=== PATIENT | male | born 1945 | race Caucasian/White ===

== ENCOUNTER 2023-01-31 08:40 | Outpatient (CLI) | payer MEDICARE, SELFPAY | END 2023-01-31 08:41 | disposition home or self-care (01) | LOC: NFLDREF 02-01 10:44 | PROVIDERS: PCP Family Medicine; Referring Provider Family Medicine; Visit Provider Family Medicine | DX: Z00.00 Encounter for general adult medical examination without abnormal findings (principal); E78.5 Hyperlipidemia, unspecified; R73.01 Impaired fasting glucose; I10 Essential (primary) hypertension; Z12.5 Encounter for screening for malignant neoplasm of prostate | CPT/HCPCS: 80053; 80061; 84153 ==

== ENCOUNTER 2024-01-26 10:16 | Outpatient (CLI) | payer MEDICARE, SELFPAY ==
--- OUTSIDE RECORDS SUMMARY | 2024-02-16 11:43 | XMS_ITS | Encounter Summary ---
Author Name [facility] of [facility] Organization [facility] Address [address] [place] [address] Support Name Relationship Address Phone FULL, ESTHER Next of Kin [address] [place] [phone] ESTHER HAYES Emergency Contact [address] [place] [id number] Insurance Providers: All historical and current Section Date Range: From patient's date of to the date document was created. This section includes the names of all active insurance providers for the patient. Insurance Provider Type of Coverage Plan Name Start of Policy Coverage End of Policy Coverage Group Number Member ID Insurance Provider's Telephone Number Policy Oshea's Name Patient's Relationship to Policy Oshea [facility] (WNR) MEDICARE ADVANTAGE MCR (WNR) Oct 03, 2020 [id number] [phone] FULLGUERRERO AEL PATIENT [facility] (WNR) MEDICARE ADVANTAGE MCR (WNR) Oct 03, 2020 [id number] [phone] FULL,[facility] AEL PATIENT [facility] (WNR) MEDICARE ADVANTAGE MEDIC ARE ADVROHITH WEEMS C Oct 03, 2016 [id number] [phone] FULL,[facility] AEL PATIENT Selected Encounter This section includes the information on record at [place] for the Encounter. Date/Time Encounter Type Encounter Description Reason Provider Source Jan 31, 2024 08:30 AM OFFICE O/P EST MOD 30 MIN PRIMARY CARE/MEDICINE ICD-10-CM I10 Essential (primary) hypertension STENSETKathya,CHRI STOPHER IHE Encounter Template Text not used by [place] Assessments - Encounter Diagnoses This section includes the primary and secondary diagnoses documented for the Encounter. Date/Time Primary/Secondary Diagnosis Diagnosis Name Provider Source Jan 31, 2024 09:25 AM PRIMARY Essential (primary) [facility] Jan 31, 2024 09:25 AM SECONDARY Benign prostatic hyperplasia without lower urinry tract symp [facility] Jan 31, 2024 09:25 AM SECONDARY Hyperlipidemia, unspecified [facility],[facility] Jan 31, 2024 09:25 AM SECONDARY Insomnia, unspecified STENSET,[facility] Jan 31, 2024 09:25 AM SECONDARY Obesity, unspecified [facility]AT,[facility] Jan 31, 2024 09:25 AM SECONDARY Occlusion and stenosis of unspecified carotid artery [facility] Jan 31, 2024 09:25 AM SECONDARY Personal history of nicotine [facility] Plan of Treatment: Future Appointments (+ 6 months) and Future Tests (+/- 45 days) The Plan of Treatment section includes future care activities for the patient [facility] This section includes future appointments and future orders which are active, pending or scheduled. Future Appointments This section includes appointments that were scheduled to occur 6 months from the date of the Encounter, up to a maximum of 20 appointments. The data comes from all [facility]. Appointment Date/Time Appointment Type Appointme nt Facility Name Apr 10, 2024 09:00 AM AMBULATORY - [facility] Active, Pending, and Scheduled Orders This section includes a listing of several types of active, pending, and scheduled orders, including clinic medications orders, diagnostic test orders, procedure orders and consult orders; where the start date of the order is 45 days before the date of the Encounter or 45 days after the date of theEncounter. The data comes from all [facility]. Test Date/Time Test Type Test Details Facility Name Jan 31, 2024 11:45 AM Consult Order [facility] Director's Choice [facility] Lab Results: +/- 30 days of the encounter This section includes the Chemistry and Hematology Lab Results on record with [place] for the patient. Radiology Reports and Pathology Reports are provided separately, in subsequent sections. Lab Results This section contains the Chemistry/Hematology Results that were resulted 30 days before or 30 daysafter the date of the Encounter. Date/Time Source Result Type Result - Unit Interpretation Reference Range Comment Jan 31, 2024 09:48 AM [facility] DRUG SCREEN PANEL,URINE Specimen Type: URINE No comment entered. Ordering Provider: SALEEM QUEVEDO Report Released Date/Time: Jan 31, 2024 09:01 AM Reporting Lab: [facility] [address] [facility] [id number] Performing Lab: [facility] [address] [facility] [id number] BARBITURATES Negative Negative AMPHETAMINES Negative Negative COCAINE Negative Negative BENZODIAZEPINES Negative Negative CANNABINOIDS Negative Negative METHADONE Negative Negative OPIATES Negative Negative PHENCYCLIDINE Negative Negative ETHANOL,URINE Negative Negative DRUG SCREEN CREAT 159.0 >20.0 OXYCODONE Negative Negative BUPRENORPHINE Negative Negative TRAMADOL Negative Negative FENTANYL Negative Negative Vital Signs: All taken on the encounter date This section contains inpatient and outpatient Vital Signs collected on the date of the Encounter. Date/Time Temperature Pulse Blood Pressure Respiratory Rate SP02 Pain Height Weight Body Mass Index Source Jan 31, 2024 08:36 AM 112/74 [facility] Jan 31, 2024 08:30 AM 61 144/79 14 96 1 70 210 30 [facility] Social History: Smoking Status (Most current) and Tobacco Use (All prior to encounter date) This section includes the most current, and the historical, smoking and tobacco- related health factors from the [place] facility where the Encounter took place. Current Smoking Status This section includes the most current smoking, or tobacco-related health factor, from the [place] facility where the Encounter took place. Date/Time Current Smoking Status Comment Deanna brooke Jan 31, 2024 08:30 AM VA-TOBACCO FORMER USER [facility] Tobacco Use History This section includes a history of the smoking, or tobacco-related health factors, that were collected on or before the date of the Encounter. The data comes from the [place] facility where the Encounter took place. Date/Time Smoking Status/Tobacco Use Comment F acility Jan 31, 2024 08:30 AM VA-TOBACCO QUIT 15 YRS OR MORE [facility] February 08, 2023 10:00 AM VA-TOBACCO FORMER USER [facility] February 08, 2023 10:00 AM VA-TOBACCO QUIT 15 YRS OR MORE [facility] February 08, 2022 03:00 PM VA-TOBACCO FORMER USER [facility] February 08, 2022 03:00 PM VA-TOBACCO QUIT 15 YRS OR MORE [facility] February 16, 2021 01:30 PM VA-TOBACCO FORMER USER [facility] February 16, 2021 01:30 PM VA-TOBACCO QUIT 15 YRS OR MORE [facility] Apr 11, 2020 03:22 PM VA-TOBACCO FORMER USER [facility] Apr 11, 2020 03:22 PM VA-TOBACCO QUIT 15 YRS OR MORE [facility] Oct 12, 2018 12:54 PM VA-TOBACCO FORMER USER [facility] Oct 12, 2018 12:54 PM VA-TOBACCO QUIT 15 YRS OR MORE [facility] February 02, 2018 09:28 AM FORMER TOBACCO USER 7Y OR GREATE R [facility] February 02, 2016 10:22 AM FORMER TOBACCO USER 7Y OR GREATE R [facility] Jan 13, 2015 08:21 AM FORMER TOBACCO USER 7Y OR GREATE R [facility] Jan 21, 2014 08:15 AM FORMER TOBACCO USER 7Y OR GREATE R [facility] Dec 21, 2010 10:20 AM FORMER TOBACCO USER 7Y OR GREATE R [facility] Encounter Notes: All associated encounter notes This section contains the clinical notes associated to the Encounter. Date/Time Encounter Note(s) Provider Source Jan 31, 2024 09:18 AM INTERNAL MEDICINE NOTE: LOCAL TITLE: MEDICINE CLINIC NOTE STANDARD TITLE: INTERNAL MEDICINE NOTE DATE OF NOTE: JAN 31, 2024@09:18 ENTRY DATE: JAN 31, 2024@09:18:39 AUTHOR: ERICA QUEVEDO COSIGNER: URGENCY: STATUS: COMPLETED Nurse's Notes Reviewed. Chief Complaint: Annual f/u HPI: 78 y/o FIG here for annual follow-up. Principally follows with private doctor in [place]. History of right carotid endarterectomy, private surveillance. Takes statin and aspirin daily, no TIA symptoms or amaurosis fugax. does not smoke cigarettes or use tobacco products. Occasional light alcohol, not exceeding recommended limits. No angina, depression, falls, or complaints of other musculoskeletal pain. Request for screening ultrasound for AAA, significant tobacco use history . Comprehensive review of systems was otherwise negative. Past medical history/Active Problems: Active Problems: Active problems - Computerized Problem List is the source for the followin. Benign essential hypertension 2. Hyperlipidemia 3. Carotid artery stenosis - carotid endarterectomy right - stable, moderate plaque left carotid bulb in 2019 4. Insomnia - chronic low dose clonazepam 5. dual care - 2019: Dr. Liriano at [facility] 6. Simple renal cyst - Bilateral renal cysts, stable. 7.7cm on right 7. Elevated total bilirubin 8. Lumbar spondylosis - 2018 MRI: L3/4 severe central stenosis, no neurologic findings - receiving spinal ablation injections 9. Hearing loss - A hearing aides - Tinnitus well managed 10. Osteoarthritis - Right knee replaced - Right hip replacement - Feet: bunions, early claw foot deformity 11. Social and personal history finding - Esther, travels often, volunteers abroad - 2 children, 3 grandchildren, youngest child January 2019. 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 Benign prostatic hyperplasia 13. Benign polyp of colon - 2012 polyp, 2018 none, repeat 06/2024. Note 03/12/2021 and result 03/23/2021 14. Obesity 15. Ex-smoker Tobacco/ETOH Use: No tobacco use Alcohol Use: Does drink though not concerning for abuse. Review of Systems: Feels well, no weight loss, good appetite. No Chest Pain. No Shortness of breath. No orthopnea, PND, or peripheral edema. No abdominal pain, N/V, or change in bowel habits. No diarrhea or constipation. No Bleeding. No urinary hesitancy or frequency. Physical Exam: VS: Temp: 96.3 F [35.7 C] (02/08/2023 09:47) BP: 112/74 (01/31/2024 08:36) Pulse:61 (01/31/2024 08:30) Resp: 14 (01/31/2024 08:30) Weight: 210 lb [95.25 kg] (01/31/2024 08:30) Pain: 1 (01/31/2024 08:30) O2 Sat: 96% (01/31/2024 08:30) BMI: 30.2 General NAD WDWN Ambulatory Overweight Conversive, pleasant Right endart scar Cardiac: RRR with normal S1 and S2; without murmur, gallop, rub. Chest/Lungs: Bilaterally clear, Clear to auscultation Extremities: No edema. Assessment/Plan: 1. Benign essential hypertension: Atenolol- encouraged to optimize lifestyle - BPs at goal/med mgt optimized 2. Hyperlipidemia - on mod intensity statin 3. Carotid artery stenosis: Discussed augmenting statin therapy with private PCP for goal less than 70 LDL - carotid endarterectomy right - stable, moderate plaque left carotid bulb in 2019 - continue to [id number] RF 4. Insomnia: Suggested he work at tapering the clonazepam in light of his advancing age - chronic low dose clonazepam -UDS today. f/u w/ pt -PDMP shows no discrepancies 5. Benign prostatic hyperplasia - on flomax, encouraged to schedule daily use - sx satisfactorily ctrlled - continue to optimize lifestyle interventions as well - routine f/u 6. Hearing loss: Has audiology follow-up next 7. Overweight: Weight loss Plan: Return to Clinic in 1 year with no labs, FIG Labs today Call as needed with problems Medications reconciled Patient Education of Treatment Plan: Patient indicates readiness to learn, verbalizes understanding, agreement and satisfaction with the treatment plan. Denies further questions. More than 50% of this 30 min appt was spent counseling/coordinating care for the medical problems outlined above. Medication Reconciliation: Education Evaluations *Was medication education provided for NEW medications or CHANGES to medications? (including medication name, dose, route, reason for use, and potential side effects). No new medications or medication changes during this encounter. TERATOGENIC MED & CONTRACEPTION REVIEW (Optional)... ======= MEDICATION RECONCILIATION ======= List Given: An updated medication list was provided to the patient/caregiver. Review Done: The medication list shown below was verified for accuracy and it includes all pending medications/active medications/all medications or discontinued within the last 90 days/all remote medications and non-VA medications. If a given category (i.e. remote meds) is not shown, that means that a patient doesn't have a medication(s) in that category. Allergies listed below were also reviewed/updated for accuracy. Allergies/ADR from [employer] may not display in CPRS. Use JLV MRT5 - Allergies/ADRs FACILITY ALLERGY/ADR -------- No Remote Allergy/ADR Data available for this patient [facility] No Known Allergies Active and Recently Outpatient Medications (including Supplies): Issue Date Status Last Fill Active Outpatient Medications Refills Expiration 1) ATENOLOL 25MG TAB Qty: 90 for 90 days ACTIVE Issu:02-08-23 Sig: TAKE ONE TABLET BY MOUTH EVERY Refills: 0 Last:12-16-23 DAY Expr:02-09-24 2) CLONAZEPAM 1MG TAB Qty: 30 for 30 days ACTIVE Issu:12-16-23 Sig: TAKE ONE TABLET BY MOUTH AT Refills: 1 Last:12-16-23 BEDTIME FOR INSOMNIA Expr:06-17-24 3) SIMVASTATIN 10MG TAB Qty: 90 for 90 ACTIVE Issu:12-16-23 days Sig: TAKE ONE TABLET BY MOUTH AT Refills: 3 Last:01-03-24 BEDTIME FOR CHOLESTEROL Expr:12-16-24 4) TAMSULOSIN HCL 0.4MG CAP Qty: 90 for 90 ACTIVE Issu:02-08-23 days Sig: TAKE ONE CAPSULE BY MOUTH Refills: 2 Last:09-23-23 AT BEDTIME FOR BENIGN PROSTATIC Expr:02-09-24 HYPERTROPHY (BPH) Issue Date Status Last Fill Pending Outpatient Medications Refills Expiration 1) ATENOLOL 25MG TAB Qty: 90 Sig: TAKE PENDING ONE TABLET BY MOUTH EVERY DAY Refills: 0 2) CLONAZEPAM 1MG TAB Qty: 30 Sig: TAKE PENDING ONE TABLET BY MOUTH AT BEDTIME FOR Refills: 0 INSOMNIA 3) SIMVASTATIN 10MG TAB Qty: 90 Sig: TAKE PENDING ONE TABLET BY MOUTH AT BEDTIME FOR Refills: 0 CHOLESTEROL 4) TAMSULOSIN HCL 0.4MG CAP Qty: 90 Sig: PENDING TAKE ONE CAPSULE BY MOUTH AT BEDTIME Refills: 0 FOR BENIGN PROSTATIC HYPERTROPHY (BPH) Issue Date Status Last Fill Inactive Outpatient Medications Refills Expiration 1) CLONAZEPAM 1MG TAB Qty: 30 for 30 days DISCONTINUED Issu:08-29-23 Sig: TAKE ONE TABLET BY MOUTH AT Refills: 0 Last:10-25-23 BEDTIME FOR INSOMNIA FOR INSOMNIA Expr:02-29-24 2) SIMVASTATIN 10MG TAB Qty: 90 for 90 DISCONTINUED Issu:01-11-23 days Sig: TAKE ONE TABLET BY MOUTH AT Refills: 0 Last:10-10-23 BEDTIME FOR CHOLESTEROL Expr:01-12-24 3) SIMVASTATIN 20MG TAB Qty: 45 for 90 DISCONTINUED Issu:01-06-23 days Sig: TAKE ONE-HALF TABLET BY (EDIT) Last:01-11-23 MOUTH AT BEDTIME FOR CHOLESTEROL Refills: 3 Expr:01-07-24 Start Date Active Non-VA Medications Refills Expiration 1) Non-VA ASPIRIN TAB SiMG MOUTH ACTIVE EVERY DAY 12 Total Medications Follow Up Colonoscopy: Colonoscopy is due based on information available to this reminder. Patient has arranged or is choosing to arrange a Colonoscopy independent of and w/out assistance from this [place]. scheduled through private /megan/ Berto Quevedo APRN, CATALYST OPERATOR GASOLINE Family Nurse Practitioner Signed: 01/31/2024 09:25 ERICA QUEVEDO [facility] Jan 31, 2024 08:32 AM INTERNAL MEDICINE OUTPATIENT NOTE: LOCAL TITLE: MEDICINE CLINIC NURSING NOTE STANDARD TITLE: INTERNAL MEDICINE OUTPATIENT NOTE DATE OF NOTE: JAN 31, 2024@08:32 ENTRY DATE: JAN 31, 2024@08:32:32 AUTHOR: CORY MACHUCA COSIGNER: URGENCY: STATUS: COMPLETED MEDICINE CLINIC NURSING NOTE Has ADDENDA TYPE OF VISIT: Appointment Check In Type of appointment: In-person appointment REASON FOR VISIT: Check up. ALLERGIES: Patient has answered NKA VITAL SIGNS: Blood Pressure: 144/79 (01/31/2024 08:30) Pulse: 61 (01/31/2024 08:30) Respiration: 14 (01/31/2024 08:30) Temperature: 96.3 F [35.7 C] (02/08/2023 09:47) Weight: 210 lb [95.25 kg] (01/31/2024 08:30) Height: 70 in [177.8 cm] (01/31/2024 08:30) BMI: 30.2 O2 Sat: 96% (01/31/2024 08:30) Pain: 1 (01/31/2024 08:30) PAIN SCREEN: Patient is not having significant pain that they wish to discuss with their provider today. MEDICATION Over the Counter/Herbal Medications: The patient states that they take some outside medications and/or herbals. Suicide Screen: C-SSRS Screening [place] Suicide Severity Rating Scale (C-SSRS) screener 1. Over the past month, have you wished you were or wished you could go to sleep and not wake up? No 2. Over the past month, have you had any actual thoughts of killing yourself? No 3. Over the past month, have you been thinking about how you might do this? Response not required due to responses to other questions. 4. Over the past month, have you had these thoughts and had some intention of acting on them? Response not required due to responses to other questions. 5. Over the past month, have you started to work out or worked out the details of how to kill yourself? Response not required due to responses to other questions. 6. If yes, at any time in the past month did you intend to carry out this plan? Response not required due to responses to other questions. 7. In your lifetime, have you ever done anything, started to do anything, or prepared to do anything to end your life (for example, collected pills, obtained a gun, gave away valuables, went to the roof but didn't jump)? No 8. If YES, was this within the past 3 months? Response not required due to responses to other questions. Alcohol Use Screen (AUDIT-C): Alcohol Screen: SCREEN FOR ALCOHOL (AUDIT-C) An alcohol screening test (AUDIT-C) was negative (score=3). 1. How often did you have a drink containing alcohol in the past year? Consider a drink to be a 12 ounce can or bottle of regular beer, 8 ounces of malt liquor, a 5 ounce glass of table wine, or a 1.5 ounce shot of liquor (like scotch, gin, or vodka). Two to three times per week 2. How many drinks containing alcohol did you have on a typical day when you were drinking in the past year? One or two drinks 3. How often did you have six or more drinks on one occasion in the past year? Never Depression Screening: Perform PHQ-2 A PHQ-2 screen was performed. The score was 0 which is a negative screen for depression. Over the past two weeks, how often have you been bothered by the following problems? 1. Little interest or pleasure in doing things Not at all 2. Feeling down, depressed, or hopeless Not at all Nursing Annual Screening: Fall History Screen During the past 12 months, have you had any falls? Patient does not report any falls in the past 12 months. MEDICATIONS: Patient is on one of the following medication classes: Antihypertensives, Antidepressants, Antipsychotics, Diuretics, or Controlled substance medication used for pain. Script Talk Screen Are you able to read your prescription bottles with your glasses, magnifiers or other aids? Yes or patient not taking any prescriptions. Skin Screen Patient reports any current pressure ulcers, a history of pressure ulcers, or a wound from a medical interpreter or Patient is bed-confined or a wheelchair-user or Patient requires assistance to transfer/change position No, Skin Screen is Negative Home Abuse/Violence Screen Is your home free of abuse and violence? Yes MOVE! Program Screen Body Mass Index (BMI)= 30.2 [place]: No data available [place] Hgb A1C: No data available [place] Hgb A1C: No data available Point of Care Hgb A1C: POC HGB A1C____ Outpatient Nutrition Screen Body Mass Index (BMI)= 30.2 [place]: No data available [place] Hgb A1C: No data available [place] Hgb A1C: No data available Point of Care Hgb A1C: POC HGB A1C____ Is patient's BMI less than 18.5? No Does patient have swallowing, coughing, or chewing problems affecting oral intake? No Has patient experienced unplanned weight loss or gain greater than 10 pounds over the last 2 months? No Is patient's Hgb A1C (Glycosylated Hemoglobin) greater than 9.5? Information not available Is patient receiving Total Parenteral Nutrition (TPN) or Tube Feedings? No Patient Health Education Screen BARRIERS/SPECIAL NEEDS: No barriers identified PREFERRED STYLE OF LEARNING: No preference stated Client Assistive Service (JUAN ALBERTO) Screen Does the patient require assistance with outpatient visit? No Tobacco Use Screening: The patient is a former tobacco user. The patient quit fifteen or more years ago. Homelessness/Food Insecurity Screen: In the past 2 months, have you been living in stable housing that you own, rent, or stay in as part of a household? Yes - Living in stable housing. Are you worried or concerned that in the next 2 months you may NOT have stable housing that you own, rent, or stay in as part of a household? No - Not worried about housing near future [facility] [place] reports the following: Within the past 12 months, you worried whether your food would run out before you got money to buy more. Never true Within the past 12 months, the food you bought just didn't last and you didn't have money to get more. Never true Food Assistance Programs [facility] Food Assistance [facility] [place] /megan/ CORY MACHUCA LPN STAFF INSPECTOR [employer] Signed: 01/31/2024 08:35 01/31/2024 ADDENDUM STATUS: COMPLETED Procedure: Urine Drug Screen Instructed in collection of urine drug screen. Printed instructions provided and participant(s) is able to repeat these instructions accurately. Review recent medication history: Has patient used any controlled substance in the past 3 days: Yes, Patient reports using the following, Medication name and dose: clonazepam 1mg Date and time it was taken: 01/30/24 in pm Has Patient used any Non-VA or [id number] medications in the past 3 days: Yes, Patient reports using the following, Medication name and dose: aspirin Date and time it was taken: 01/30/24 in pm Has patient used any illegal substance in the past 3 days: No Urine Drug Screen (UDS): sent to [facility] /megan/ EMANUEL FORTE LPN Signed: 01/31/2024 09:32 CORY MACHUCA [facility]
--- OUTSIDE RECORDS SUMMARY | 2024-02-16 11:43 | XMS_ITS | Continuity of Care Document ---
Author Name [facility] Organization [facility] Care Team Providers Care Staff Air Defense Officer Name Role Phone [facility] Unavailable Unavailable Problems Combined list of problems from Department of Defense and Veterans Affairs facilities. It does not include entries that were removed or entered in error. Problem Status Onset Date Problem Type Date of Resolution Comments Source Benign essential hypertension Active Condition [facility] Benign polyp of colon Active Condition Mar 23, 2021 Entered By: VERNA MOSS Comment: 2012 polyp, 2018 none, repeat 06/2024. Note 03/12/2021 and result 03/23/2021 [facility] Benign prostatic hyperplasia Active Condition February 12, 2019 Entered By: VERNA MOSS Comment: 01/2019: residual urine 52ml [facility] Carotid artery stenosis Active Condition February 13, 2018 Entered By: VERNA MOSS Comment: carotid endarterectomy rightMa2022 Entered By: MICHELLE MILLS Comment: stable, moderate plaque left carotid bulb in 2018 [facility] dual care Active Condition February 12 19 Entered By: VERNA MOSS Comment: 2019: Dr. Liriano at [facility] Elevated total bilirubin Active Condition [facility] Ex-smoker Active Condition [facility] Hearing loss Active Condition February 13, 2018 Entered By: VERNA MOSS Comment: [facility] hearing aidesMay 2018 Entered By: VERNA MOSS Comment: Tinnitus well managed [facility] Hyperlipidemia Active Condition [facility] Insomnia Active Condition February 13 18 Entered By: VERNA MOSS Comment: chronic low dose clonazepam [facility] Lumbar spondylosis Active Condition February 12, 2019 Entered By: VERNA MOSS Comment: 2019 MRI: L3/4 severe central stenosis, no neurologic findingsMay 2022 Entered By: MICHELLE MILLS Comment: receiving spinal ablation injections [facility] Obesity Active Condition [facility] Osteoarthritis Active Condition January 312020 Entered By: VERNA MOSS Comment: Right knee replacedMa2020 Entered By: VERNA MOSS Comment: Right hip replacementFebruary 16, 2021 Entered By: VERAN MOSS Comment: Feet: bunions, early claw foot deformity [facility] Simple renal cyst Active Condition 2018 Entered By: VERNA MOSS Comment: Bilateral renal cysts, stable. 7.7cm on right [facility] Social and personal history finding Active Condition Apr 14, 2020 Entered By: VERNA MOSS Comment: Esther, travels often, volunteers abroadJ 2019 Entered By: VERNA MOSS Comment: 2 children, 3 grandchildren, youngest child January 2019. 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 [facility] History of right hip replacement Inactive Condition 07/28/2022 Apr 14, 2020 Entered By: VERNA MOSS Comment: Nov 2019. Had fracture during surgery but recovered well [facility] History of total knee arthroplasty Inactive Condition 07/28/2022 February 12 Entered By: VERNA MOSS Comment: Right knee, good results January 2019 [facility] Diagnosis: ICD-10-CM H90.A21 Snsrnrl hear loss, uni, r ear, with rstrcd hear cntra side Active Diagnosis [facility] Diagnosis: ICD-10-CM I10 Essential (primary) hypertension Active Diagnosis [facility] Diagnosis: ICD-10-CM G47.00 Insomnia, unspecified Active Diagnosis [facility] Diagnosis: ICD-10-CM Z01.118 Encntr for exam of ears and hearing w oth abnormal findings Active Diagnosis [facility] Medications Combined list of outpatient medications from Department of Defense and Veterans Affairs facilities.Medications provided include 1) outpatient medications from the last 15 months, and 2) patient-reported medications. Medication Details Route Status Patient Instructions Prescription Expires Prescription Number Last Dispense Date Ordering Provider Order Date Order Qty Source ASPIRIN TAB TAKE 81MG BY MOUTH EVERY DAY ORALLY ACTIVE VERNA MOSS 2021 [facility] ATENOLOL 25MG TAB TAKE ONE TABLET BY MOUTH EVERY DAY ORALLY SUSPEND ED 01/31/2025 [id number] TRISHA THOMPSON 2023 90 [facility] ATENOLOL 25MG TAB TAKE ONE TABLET BY MOUTH EVERY DAY ORALLY DISCONT INUED 02/09/2024 [id number] SALVADOR MILLS 2022 90 [facility] ATENOLOL 25MG TAB TAKE ONE TABLET BY MOUTH EVERY DAY ORALLY DISCONT INUED 01/16/2023 [id number] VERNA MOSS 2021 90 [facility] CLONAZEPAM 1MG TAB TAKE ONE TABLET BY MOUTH AT BEDTIME FOR INSOMNIA ORALLY ACTIVE 08/02/2024 [id number] TRISHA THOMPSON 2023 30 [facility] CLONAZEPAM 1MG TAB TAKE ONE TABLET BY MOUTH AT BEDTIME FOR INSOMNIA ORALLY DISCONT INUED 06/17/2024 [id number] ERICA RUTH 2023 30 [facility] CLONAZEPAM 1MG TAB TAKE ONE TABLET BY MOUTH AT BEDTIME FOR INSOMNIA FOR INSOMNIA ORALLY DISCONT INUED 02/29/2024 [id number] DENICE MILLSV IA Derrek 2022 30 [facility] CLONAZEPAM 1MG TAB TAKE ONE TABLET BY MOUTH AT BEDTIME FOR INSOMNIA ORALLY DISCONT INUED 01/28/2023 [id number] 3 SALVADOR MILLS 2021 30 [facility] CLONAZEPAM 1MG TAB TAKE ONE TABLET BY MOUTH AT BEDTIME FOR INSOMNIA ORALLY 08/11/2023 [id number] SALVADOR MILLS 2022 30 [facility] SIMVASTATIN 10MG TAB TAKE ONE TABLET BY MOUTH AT BEDTIME FOR CHOLESTE ROL ORALLY SUSPEND ED 01/31/2025 [id number] TRISHA THOMPSON 2023 90 [facility] SIMVASTATIN 10MG TAB TAKE ONE TABLET BY MOUTH AT BEDTIME FOR CHOLESTE ROL ORALLY DISCONT INUED 12/16/2024 [id number] ERICA RUTH 2023 90 [facility] SIMVASTATIN 10MG TAB TAKE ONE TABLET BY MOUTH AT BEDTIME FOR CHOLESTE ROL ORALLY DISCONT INUED 01/12/2024 [id number] SALVADOR MILLS 2022 90 [facility] SIMVASTATIN 20MG TAB TAKE ONE-HALF TABLET BY MOUTH AT BEDTIME FOR CHOLESTE ROL ORALLY DISCONT INUED (EDIT) 01/07/2024 [id number] 3 VERNA MOSS 2022 45 [facility] TAMSULOSIN HCL 0.4MG CAP TAKE ONE CAPSULE BY MOUTH AT BEDTIME FOR BENIGN PROSTATI C HYPERTRO PHY (BPH) ORALLY ACTIVE 01/31/2025 [id number] TRISHA THOMPSON 2023 90 [facility] TAMSULOSIN HCL 0.4MG CAP TAKE ONE CAPSULE BY MOUTH AT BEDTIME FOR BENIGN PROSTATI C HYPERTRO PHY (BPH) ORALLY DISCONT INUED 02/09/2024 [id number] SALVADOR MILLS 2022 90 [facility] Immunizations Combined list of available immunizations from the Department of Defense and Veterans Affairs facilities. Immunization Series Date Given Administered By Site Reaction Lot Number CVX Code Drug Frontload Driver Status Comments Source COVID-19 (MODERNA), MRNA, LNP-S, PF, 50 MCG/0.5 ML (AGES 12+ YEARS) 2022 312 complet ed [facility] INFLUENZA, HIGH-DOSE, QUADRIVALENT 2022 197 complet ed [facility] COVID-19 (MODERNA), MRNA, LNP-S, BIVALENT, PF, 50 MCG/0.5 ML OR 25MCG/0.25 ML DOSE 2022 229 complet ed [facility] INFLUENZA, UNSPECIFIED FORMULATION 2021 88 complet ed [facility] INFLUENZA, HIGH-DOSE, QUADRIVALENT 2021 197 complet ed [facility] COVID-19 (MODERNA), MRNA, LNP-S, BIVALENT, PF, 50 MCG/0.5 ML OR 25MCG/0.25 ML DOSE 2021 229 complet ed [facility] PNEUMOCOCCAL POLYSACCHARID E PPV23 2021 33 complet ed [facility] TDAP 2021 115 complet ed [facility] COVID-19 (MODERNA), MRNA, LNP-S, PF, 100 MCG/0.5ML DOSE OR 50 MCG/0.25ML DOSE 4 2021 207 complet ed [facility] COVID-19 (MODERNA), MRNA, LNP-S, PF, 100 MCG/0.5ML DOSE OR 50 MCG/0.25ML DOSE 3 2020 207 complet ed [facility] INFLUENZA, HIGH-DOSE, QUADRIVALENT 2020 197 complet ed [facility] INFLUENZA, SEASONAL, INJECTABLE 2020 141 complet ed [employer] 0.7 2020- inj [facility] COVID-19 (MODERNA), MRNA, LNP-S, PF, 100 MCG/0.5 ML DOSE 2 2020 207 complet ed [facility] COVID-19 (MODERNA), MRNA, LNP-S, PF, 100 MCG/0.5 ML DOSE 1 2020 207 complet ed [facility] INFLUENZA, HIGH-DOSE, QUADRIVALENT 2019 197 complet ed [facility] INFLUENZA, UNSPECIFIED FORMULATION 2019 88 complet ed [facility] ZOSTER RECOMBINANT 2 2018 187 complet ed [facility] ZOSTER RECOMBINANT 1 2018 187 complet ed [facility] TYPHOID, VICPS 2018 101 complet ed [facility] INFLUENZA, HIGH DOSE SEASONAL 2017 135 complet ed [facility] PNEUMOCOCCAL CONJUGATE PCV 13 2017 133 complet ed [facility] INFLUENZA, HIGH DOSE SEASONAL 2014 135 complet ed [facility] INFLUENZA, HIGH DOSE SEASONAL 2013 135 complet ed [facility] INFLUENZA, UNSPECIFIED FORMULATION 2012 88 complet ed [facility] PNEUMOCOCCAL, UNSPECIFIED FORMULATION 2012 109 complet ed [employer] Lot#[id number] Exp March 13 [facility] HEP A-HEP B 2012 104 complet ed [facility] INFLUENZA, HIGH DOSE SEASONAL 2011 135 complet ed [facility] ZOSTER LIVE 2011 121 complet ed [employer] [id number] exp [facility] HEP A-HEP B 2011 104 complet ed [facility] HEP A-HEP B 2011 104 complet ed [facility] TDAP 2011 115 complet ed [employer] Lot# [id number] aExp1 [facility] TYPHOID, ORAL 2011 25 complet ed [facility] HEP A-HEP B 2011 104 complet ed [facility] INFLUENZA, UNSPECIFIED FORMULATION 2010 88 complet ed [facility] INFLUENZA, UNSPECIFIED FORMULATION 2009 88 complet ed [facility] Results Combined list of recent chemistry, hematology and other laboratory results from Department of Defense and Veterans Affairs, ranging from 15 months to all on record, depending upon the facility. Order Name Results Value Reference Range Date Interpretation Specimen Comments Source DRUG SCREEN PANEL,U RINE BARBITURATE S [PRESENCE] IN URINE BY SCREEN METHOD Negative 01/30 Specimen Type: URINE No comment entered. Ordering Provider: ALEX THOMPSON Report Released Date/Time: Jan 31, 2024 09:01 AM Reporting Lab: [facility] [phone] Performing Lab: [facility] [address] [facility] DRUG SCREEN PANEL,U RINE AMPHETAMINE S [PRESENCE] IN URINE Negative 01/30 Specimen Type: URINE No comment entered. Ordering Provider: ALEX THOMPSON Report Released Date/Time: Jan 31, 2024 09:01 AM Reporting Lab: [facility] [address] Performing Lab: [facility] [address] [facility] DRUG SCREEN PANEL,U RINE COCAINE [PRESENCE] IN URINE Negative 01/30 Specimen Type: URINE No comment entered. Ordering Provider: ALEX THOMPSON Report Released Date/Time: Jan 31, 2024 09:01 AM Reporting Lab: [facility] [phone] Performing Lab: [facility] [address] [facility] DRUG SCREEN PANEL,U RINE BENZODIAZEP TAN [PRESENCE] IN URINE BY SCREEN METHOD Negative 01/30 Specimen Type: URINE No comment entered. Ordering Provider: ALEX THOMPSON Report Released Date/Time: Jan 31, 2024 09:01 AM Reporting Lab: [facility] [phone] Performing Lab: [facility] [address] [facility] DRUG SCREEN PANEL,U RINE CANNABINOID S [PRESENCE] IN URINE BY SCREEN METHOD Negative 01/30 Specimen Type: URINE No comment entered. Ordering Provider: ALEX THOMPSON Report Released Date/Time: Jan 31, 2024 09:01 AM Reporting Lab: [facility] [address] Performing Lab: [facility] [address] [facility] DRUG SCREEN PANEL,U RINE METHADONE [PRESENCE] IN URINE Negative 01/30 Specimen Type: URINE No comment entered. Ordering Provider: ALEX THOMPSON Report Released Date/Time: Jan 31, 2024 09:01 AM Reporting Lab: [facility] [address] Performing Lab: [facility] [address] [facility] DRUG SCREEN PANEL,U RINE OPIATES [PRESENCE] IN URINE BY SCREEN METHOD Negative 01/30 Specimen Type: URINE No comment entered. Ordering Provider: ALEX THOMPSON Report Released Date/Time: Jan 31, 2024 09:01 AM Reporting Lab: [facility] [address] Performing Lab: [facility] [address] [facility] DRUG SCREEN PANEL,U RINE PHENCYCLIDI NE [PRESENCE] IN URINE Negative 01/30 Specimen Type: URINE No comment entered. Ordering Provider: ALEX THOMPSON Report Released Date/Time: Jan 31, 2024 09:01 AM Reporting Lab: [facility] [address] Performing Lab: [facility] [address] [facility] DRUG SCREEN PANEL,U RINE ETHANOL [MASS/VOLUM E] IN URINE Negative 01/30 Specimen Type: URINE No comment entered. Ordering Provider: ALEX THOMPSON Report Released Date/Time: Jan 31, 2024 09:01 AM Reporting Lab: [facility] [address] Performing Lab: [facility] [address] [facility] DRUG SCREEN PANEL,U RINE CREATININE [MASS/VOLUM E] IN URINE 159.0 20.0 01/30 Specimen Type: URINE No comment entered. Ordering Provider: ALEX THOMPSON Report Released Date/Time: Jan 31, 2024 09:01 AM Reporting Lab: [facility] [address] Performing Lab: [facility] [address] [facility] DRUG SCREEN PANEL,U RINE OXYCODONE [PRESENCE] IN URINE BY SCREEN METHOD Negative 01/30 Specimen Type: URINE No comment entered. Ordering Provider: ALEX THOMPSON Report Released Date/Time: Jan 31, 2024 09:01 AM Reporting Lab: [facility] [address] Performing Lab: [facility] [address] [facility] DRUG SCREEN PANEL,U RINE BUPRENORPHI NE+NORBUPRE NORPHINE [PRESENCE] IN URINE Negative 01/30 Specimen Type: URINE No comment entered. Ordering Provider: ALEX THOMPSON Report Released Date/Time: Jan 31, 2024 09:01 AM Reporting Lab: [facility] [address] Performing Lab: [facility] [address] [facility] DRUG SCREEN PANEL,U RINE TRAMADOL CUTOFF [MASS/VOLUM E] IN URINE FOR SCREEN METHOD Negative 01/30 Specimen Type: URINE No comment entered. Ordering Provider: ALEX THOMPSON Report Released Date/Time: Jan 31, 2024 09:01 AM Reporting Lab: [facility] [address] Performing Lab: [facility] [address] [facility] DRUG SCREEN PANEL,U RINE FENTANYL [PRESENCE] IN URINE Negative 01/30 Specimen Type: URINE No comment entered. Ordering Provider: ALEX THOMPSON Report Released Date/Time: Jan 31, 2024 09:01 AM Reporting Lab: [facility] [address] Performing Lab: [facility] [address] [facility] DRUG SCREEN PANEL,U RINE BARBITURATE S [PRESENCE] IN URINE BY SCREEN METHOD Negative 02/08 Specimen Type: URINE No comment entered. Ordering Provider: MICHELLE MILLS Report Released Date/Time: February 08, 2023 10:20 AM Reporting Lab: [facility] [address] Performing Lab: [facility] [address] [facility] DRUG SCREEN PANEL,U RINE AMPHETAMINE S [PRESENCE] IN URINE Negative 02/08 Specimen Type: URINE No comment entered. Ordering Provider: MICHELLE MILLS Report Released Date/Time: February 08, 2023 10:20 AM Reporting Lab: [facility] [address] Performing Lab: [facility] [address] [facility] DRUG SCREEN PANEL,U RINE COCAINE [PRESENCE] IN URINE Negative 02/08 Specimen Type: URINE No comment entered. Ordering Provider: MICHELLE MILLS Report Released Date/Time: February 08, 2023 10:20 AM Reporting Lab: [facility] [address] Performing Lab: [facility] [address] [facility] DRUG SCREEN PANEL,U RINE BENZODIAZEP TAN [PRESENCE] IN URINE BY SCREEN METHOD Negative 02/08 Specimen Type: URINE No comment entered. Ordering Provider: MICHELLE MILLS Report Released Date/Time: February 08, 2023 10:20 AM Reporting Lab: [facility] [address] Performing Lab: [facility] [address] [facility] DRUG SCREEN PANEL,U RINE CANNABINOID S [PRESENCE] IN URINE BY SCREEN METHOD Negative 02/08 Specimen Type: URINE No comment entered. Ordering Provider: MICHELLE MILLS Report Released Date/Time: February 08, 2023 10:20 AM Reporting Lab: [facility] [address] Performing Lab: [facility] [address] [facility] DRUG SCREEN PANEL,U RINE METHADONE [PRESENCE] IN URINE Negative 02/08 Specimen Type: URINE No comment entered. Ordering Provider: MICHELLE MILLS Report Released Date/Time: February 08, 2023 10:20 AM Reporting Lab: [facility] [address] Performing Lab: [facility] [address] [facility] DRUG SCREEN PANEL,U RINE OPIATES [PRESENCE] IN URINE BY SCREEN METHOD Negative 02/08 Specimen Type: URINE No comment entered. Ordering Provider: MICHELLE MILLS Report Released Date/Time: February 08, 2023 10:20 AM Reporting Lab: [facility] [address] Performing Lab: [facility] [address] [facility] DRUG SCREEN PANEL,U RINE PHENCYCLIDI NE [PRESENCE] IN URINE Negative 02/08 Specimen Type: URINE No comment entered. Ordering Provider: MICHELLE MILLS Report Released Date/Time: February 08, 2023 10:20 AM Reporting Lab: [facility] [address] Performing Lab: [facility] [address] [facility] DRUG SCREEN PANEL,U RINE ETHANOL [MASS/VOLUM E] IN URINE Negative 02/08 Specimen Type: URINE No comment entered. Ordering Provider: MICHELLE MILLS Report Released Date/Time: February 08, 2023 10:20 AM Reporting Lab: [facility] [address] Performing Lab: [facility] [address] [facility] DRUG SCREEN PANEL,U RINE CREATININE [MASS/VOLUM E] IN URINE 103.3 20.0 02/08 Specimen Type: URINE No comment entered. Ordering Provider: MICHELLE MILLS Report Released Date/Time: February 08, 2023 10:20 AM Reporting Lab: [facility] [address] Performing Lab: [facility] [address] [facility] DRUG SCREEN PANEL,U RINE OXYCODONE [PRESENCE] IN URINE BY SCREEN METHOD Negative 02/08 Specimen Type: URINE No comment entered. Ordering Provider: MICHELLE MILLS Report Released Date/Time: February 08, 2023 10:20 AM Reporting Lab: [facility] [address] Performing Lab: [facility] [address] [facility] DRUG SCREEN PANEL,U RINE BUPRENORPHI NE+NORBUPRE NORPHINE [PRESENCE] IN URINE Negative 02/08 Specimen Type: URINE No comment entered. Ordering Provider: MICHELLE MILLS Report Released Date/Time: February 08, 2023 10:20 AM Reporting Lab: [facility] [address] Performing Lab: [facility] [address] [facility] DRUG SCREEN PANEL,U RINE TRAMADOL CUTOFF [MASS/VOLUM E] IN URINE FOR SCREEN METHOD Negative 02/08 Specimen Type: URINE No comment entered. Ordering Provider: MICHELLE MILLS Report Released Date/Time: February 08, 2023 10:20 AM Reporting Lab: [facility] [address] Performing Lab: [facility] [address] [facility] DRUG SCREEN PANEL,U RINE FENTANYL [PRESENCE] IN URINE Negative 02/08 Specimen Type: URINE No comment entered. Ordering Provider: MICHELLE MILLS Report Released Date/Time: February 08, 2023 10:20 AM Reporting Lab: [facility] [address] Performing Lab: [facility] [address] [facility] [facility] Vital Signs Combined list of inpatient and outpatient Vital Signs from Department of Defense and Veterans Affairs, ranging from 12 months to all on record, depending upon the facility. Vital Sign Value Date Comments Source Encounters Combined list of: 1) Encounters from Department of Veterans Affairs facilities going back up to thelast 18 months. 2) Encounters from the Department of Defense facilities going back up to 280 months. Location Location Details Encounter Type Encounter Number Reason For Visit Attending Provider ADM Date DC Date Status Disposition Source [facility] HEARING AID FITTING/[facility] ECKING [id number] Diagnos is: ICD-10- CM Z01.118 Encntr for exam of ears and hearing w oth abnorma l finding s
ROSETTE STEVENSON 02/08 [facility] OFFICE O/P EST MOD 30-39 MIN [id number] Diagnos is: ICD-10- CM G47.00 Insomni a, unspeci fied
DENICE MILLSVI A O 02/08 [facility] Outpatient Encounter [id number] DENICE MILLSVI A Derrek 05/12 [facility] Outpatient Encounter [id number] 05/18 [facility] Outpatient Encounter [id number] 08/29 [place] [facility] [place] [facility] Outpatient Encounter [id number] 08/29 [place] [facility] [place] [facility] Outpatient Encounter [id number] 08/29 [place] [facility] [place] [facility] Outpatient Encounter [id number] 09[facility]11 [facility] [place] [facility] Outpatient Encounter [id number] BRENNANDK GERMAIN 12/15 [place] [facility] [place] [facility] Outpatient Encounter [id number] Emily KEN 12/15 [facility] [place] [facility] Outpatient Encounter [id number] 12/15 [facility] [place] [facility] Outpatient Encounter [id number] 01/30 [facility] [place] [facility] OFFICE O/P EST MOD 30 MIN [id number] Diagnos is: ICD-10- CM I10 Essenti al (primar y) hyperte nsion<b r/> Milton THOMPSON HRISTOPHER 01/30 [facility] HEARING AID REPAIR/MOD IFYING [id number] Diagnos is: ICD-10- CM H90.A21 Snsrnrl hear loss, uni, r ear, with rstrcd hear cntra side
Cipriano RAMIREZ 01/30 [facility] Social History Combined list of available smoking, tobacco, and other social history from Department of Defense and [facility] Affairs facilities. Social History Type Response Date Comment [facility] e Tobacco smoking status [facility] IN-TOBACCO FORMER USER 01/31/2024 [facility] History of tobacco use IN-TOBACCO QUIT 1 5 YRS OR MORE 01/31/2024 [facility] History of tobacco use IN-TOBACCO FORMER USER 02/08/2023 [facility] History of tobacco use VA-TOBACCO FORMER USER 02/08/2022 [facility] History of tobacco use VA-TOBACCO FORMER USER 02/16/2021 [facility] History of tobacco use IN-TOBACCO QUIT 1 5 YRS OR MORE 04/11/2020 [facility] History of tobacco use VA-TOBACCO FORMER USER 10/12/2018 [facility] History of tobacco use FORMER TOBACCO US ER 7Y OR GREATER 02/02/2018 [facility] History of tobacco use FORMER TOBACCO US ER 7Y OR GREATER 02/02/2016 [facility] History of tobacco use FORMER TOBACCO US ER 7Y OR GREATER 01/13/2015 [facility] History of tobacco use FORMER TOBACCO US ER 7Y OR GREATER 01/21/2014 [facility] [facility] History of tobacco use FORMER TOBACCO US ER 7Y OR GREATER 12/21/2010 [facility] Plan of Care List of future care activities from [facility] facilities. Additional future care activities may be listed in the Assessment and Plan section. Date/Time Care Activity Care Activity Detail Facili ty 04/10/2024 AMBULATORY - NONE AMBULATORY - NONE [facility]I [facility] 01/31/2024 Consult Order COMMUNITY CARE-E NT Cons [employer] Assembler's Choice [facility]
--- OUTSIDE RECORDS SUMMARY | 2024-02-16 11:43 | XMS_ITS | Encounter Summary ---
Author Name [facility] Organization [facility] Address [address] [place] [address] Support Name Relationship Address Phone FULLKAREL Next of Kin [address], [place] [address] KAREL HAYES Emergency Contact [address] [place] [address] Insurance Providers: All historical and current [...] Oshea's Name Patient's Relationship to Policy Oshea [facility] (WNR) MEDICARE ADVANTAGE [facility] (WNR) Oct 03, 2020 [id number] [phone] FULLGUERRERO AEL PATIENT [facility] (WNR) MEDICARE ADVANTAGE [facility] (WNR) Oct 03, 2020 [id number] [phone] FULL,GUERRERO AEL PATIENT [facility] (WNR) MEDICARE ADVANTAGE MEDIC ARE TJ WEEMS C Oct 03, 2016 [id number] [phone] FULL,[facility] AEL PATIENT Selected Encounter This section includes the information on record at [place] for the Encounter. Date/Time Encounter Type Encounter Description Reason Pro vider Source Jan 31, 2024 12:00 AM Outpatient Encounter EVENT (HISTORICAL) IHE Encounter Template Text not used by [place] Plan of Treatment: Future Appointments (+ 6 months) and Future Tests (+/- 45 days) The Plan of Treatment section includes future care activities for the patient from all [facility] treatment[facility]ilities. This section includes future appointments and future orders which are active, pending or scheduled. Future Appointments This section includes appointments that were scheduled to occur 6 months from the date of the Encounter, up to a maximum of 20 appointments. The data comes from all [facility]. Appointment Date/Time Appointment Type Appointme nt Facility Name Apr 10, 2024 09:00 AM AMBULATORY - NONE [facility] Active, Pending, and Scheduled Orders This section includes a listing of several types of active, pending, and scheduled orders, including clinic medications orders, diagnostic test orders, procedure orders and consult orders; where the start date of the order is 45 days before the date of the Encounter or 45 days after the date of theEncounter. The data comes from all [facility]. Test Date/Time Test Type Test Details Facility Name Jan 31, 2024 11:45 AM Consult Order COMMUNITY CARE-ENT Cons Blue Line Trimmer's Choice [facility] Lab Results: +/- 30 days of the encounter This section includes the Chemistry and Hematology Lab Results on record with [place] for the patient. Radiology Reports and Pathology Reports are provided separately, in subsequent sections. Lab Results This section contains the Chemistry/Hematology Results that were resulted 30 days before or 30 daysafter the date of the Encounter. Date/Time Source Result Type Result - Unit Interpretation Reference Range Comment Jan 31, 2024 09:48 AM [facility] DRUG SCREEN PANEL,URINE Specimen Type: URINE No comment entered. Ordering Provider: SALEEM THOMPSON Report Released Date/Time: Jan 31, 2024 09:01 AM Reporting Lab: [facility] [id number] Performing Lab: [facility] [id number] BARBITURATES Negative Negative AMPHETAMINES Negative Negative COCAINE [...] Source Jan 31, 2024 08:36 AM 112/74 [facility] Jan 31, 2024 08:30 AM 61 144/79 14 96 1 70 210 30 [facility] Social History: Smoking Status (Most current) and Tobacco Use (All prior to encounter date) This section includes the most current, and the historical, smoking and tobacco- related health factors from the [place] facility where the Encounter took place. Current Smoking Status This section includes the most current smoking, or tobacco-related health factor, from the [place] facility where the Encounter took place. Date/Time Current Smoking Status Comment Facil ity Jan 31, 2024 08:30 AM VA-TOBACCO FORMER USER [facility] Tobacco Use History This section includes a history of the smoking, or tobacco-related health factors, that were collected on or before the date of the Encounter. The data comes from the [place] facility where the Encounter took place. Date/Time Smoking Status/Tobacco Use Comment F acility Jan 31, 2024 08:30 AM VA-TOBACCO QUIT 15 YRS OR MORE [facility] February 08, 2023 10:00 AM VA-TOBACCO FORMER USER [facility] February 08, 2023 10:00 AM VA-TOBACCO QUIT 15 YRS OR MORE [facility] February 08, 2022 03:00 PM VA-TOBACCO FORMER USER [facility] February 08, 2022 03:00 PM VA-TOBACCO QUIT 15 YRS OR MORE [facility] February 16, 2021 01:30 PM VA-TOBACCO FORMER USER [facility] February 16, 2021 01:30 PM VA-TOBACCO QUIT 15 YRS OR MORE [facility] Apr 11, 2020 03:22 PM VA-TOBACCO FORMER USER [facility] Apr 11, 2020 03:22 PM VA-TOBACCO QUIT 15 YRS OR MORE [facility] Oct 12, 2018 12:54 PM VA-TOBACCO FORMER USER [facility] Oct 12, 2018 12:54 PM VA-TOBACCO QUIT 15 YRS OR MORE [facility] February 02, 2018 09:28 AM FORMER TOBACCO USER 7Y OR GREATE R [facility] February 02, 2016 10:22 AM FORMER TOBACCO USER 7Y OR GREATE R [facility] Jan 13, 2015 08:21 AM FORMER TOBACCO USER 7Y OR GREATE R [facility] Jan 21, 2014 08:15 AM FORMER TOBACCO USER 7Y OR GREATE R [facility] Dec 21, 2010 10:20 AM FORMER TOBACCO USER 7Y OR GREATE R [facility]
--- OUTSIDE RECORDS SUMMARY | 2024-02-16 11:43 | XMS_ITS | Encounter Summary ---
Author Name Department of Vetera Affairs Organization [facility] Address [address] [place] [address] Support Name Relationship Address Phone KAREL HAYES Next of Kin [address] [place] [address] KAREL HAYES Emergency Contact [address] [place] [address] Insurance Providers: All historical and current [...] Oshea's Name Patient's Relationship to Policy Oshea [facility] (WNR) MEDICARE ADVANTAGE [facility] (WNR) Oct 03, 2020 [id number] [phone] FULL,[facility] AEL PATIENT [facility] (WNR) MEDICARE ADVANTAGE [facility] (WNR) Oct 03, 2020 [id number] [phone] FULL,[facility] AEL PATIENT [facility] (WNR) MEDICARE ADVANTAGE MEDIC ARE TJ WEEMS C Oct 03, 2016 [id number] [phone] FULL,[facility] AEL PATIENT Selected Encounter This section includes the information on record at [place] for the Encounter. Date/Time Encounter Type Encounter Description Reason Provider Source Jan 31, 2024 09:45 AM HEARING AID REPAIR/MODIFYING AUDIOLOGY ICD-10-CM H90.A21 Snsrnrl hear loss, uni, r ear, with rstrcd hear cntra side RUBY RAMIREZ R IHDarion Encounter Template Text not used by [facility] Assessments - Encounter Diagnoses This section includes the primary and secondary diagnoses documented for the Encounter. Date/Time Primary/Secondary Diagnosis Diagnosis Name Provider Source Jan 31, 2024 11:38 AM PRIMARY Snsrnrl hear loss, uni, r ear, with rstrcd hear cntra side RUBY RAMIREZ [facility] Jan 31, 2024 11:38 AM SECONDARY Encntr for exam of ears and hearing w oth abnormal findings RUBY RAMIREZ [facility] Jan 31, 2024 11:38 AM SECONDARY Encounter for fitting and adjustment of hearing aid RUBY RAMIREZ [facility] Jan 31, 2024 11:38 AM SECONDARY Mix cndct/snrl hear loss,uni,l ear w rstrcd hear cntra side RUBY RAMIREZ [facility] Jan 31, 2024 11:38 AM SECONDARY Tinnitus, bilateral [facility] Plan of Treatment: Future Appointments (+ 6 months) and Future Tests (+/- 45 days) The Plan of Treatment section includes [facility] care activities for the [facility] [place] [facility] This section includes future appointments and future orders which are active, pending or scheduled. Future Appointments This section includes appointments that were scheduled to occur 6 months from the date of the Encounter, up to a maximum of 20 appointments. The data comes from all [place] treatment facilities. Appointment Date/Time Appointment Type Appointme nt Facility Name Apr 10, 2024 09:00 AM AMBULATORY - [facility] Active, Pending, and Scheduled Orders This section includes a listing of several types of active, pending, and scheduled orders, including clinic medications orders, diagnostic test orders, procedure orders and consult orders; where the start date of the order is 45 days before the date of the Encounter or 45 days after the date of theEncounter. The data comes from all [place] treatment facilities. Test Date/Time Test Type Test Details Facility Name Jan 31, 2024 11:45 AM Consult Order COMMUNITY CARE-ENT Cons Health Outcomes Liaison's Choice [facility] Lab Results: +/- 30 days of the encounter This section includes the Chemistry and Hematology Lab Results on record with [place] for the patient. Radiology Reports and Pathology Reports are provided separately, in subsequent sections. Lab Results This section contains the Chemistry/Hematology Results that were resulted 30 days before or 30 daysafter the date of the Encounter. Date/Time Source Result Type Result - Unit Interpretation Reference Range Comment Jan 31, 2024 09:48 AM [facility] DRUG SCREEN PANEL,URINE Specimen Type: URINE No comment entered. Ordering Provider: SALEEM THOMPSON Report Released Date/Time: Jan 31, 2024 09:01 AM Reporting Lab: [facility] [id number] Performing Lab: [facility] [id number] BARBITURATES Negative Negative AMPHETAMINES Negative Negative COCAINE [...] Source Jan 31, 2024 08:36 AM 112/74 [facility] Jan 31, 2024 08:30 AM 61 144/79 14 96 1 70 210 30 [facility] Social History: Smoking Status (Most current) and Tobacco Use (All prior to encounter date) This section includes the most current, and the historical, smoking and tobacco- related health factors from the [place] facility where the Encounter took place. Current Smoking Status This section includes the most current smoking, or tobacco-related health factor, from the [place] facility where the Encounter took place. Date/Time Current Smoking Status Comment Deanna brooke Jan 31, 2024 08:30 AM VA-TOBACCO FORMER USER [facility] Tobacco Use History This section includes a history of the smoking, or tobacco-related health factors, that were collected on or before the date of the Encounter. The data comes from the [place] facility where the Encounter took place. Date/Time Smoking Status/Tobacco Use Comment F acility Jan 31, 2024 08:30 AM VA-TOBACCO QUIT 15 YRS OR MORE [facility] February 08, 2023 10:00 AM VA-TOBACCO FORMER USER [facility] February 08, 2023 10:00 AM VA-TOBACCO QUIT 15 YRS OR MORE [facility] February 08, 2022 03:00 PM VA-TOBACCO FORMER USER [facility] February 08, 2022 03:00 PM VA-TOBACCO QUIT 15 YRS OR MORE [facility] February 16, 2021 01:30 PM VA-TOBACCO FORMER USER [facility] February 16, 2021 01:30 PM VA-TOBACCO QUIT 15 YRS OR MORE [facility] Apr 11, 2020 03:22 PM VA-TOBACCO FORMER USER [facility] Apr 11, 2020 03:22 PM VA-TOBACCO QUIT 15 YRS OR MORE [facility] Oct 12, 2018 12:54 PM VA-TOBACCO FORMER USER [facility] Oct 12, 2018 12:54 PM VA-TOBACCO QUIT 15 YRS OR MORE [facility] February 02, 2018 09:28 AM FORMER TOBACCO USER 7Y OR GREATE R [facility] February 02, 2016 10:22 AM FORMER TOBACCO USER 7Y OR GREATE R [facility] Jan 13, 2015 08:21 AM FORMER TOBACCO USER 7Y OR GREATE R [facility] Jan 21, 2014 08:15 AM FORMER TOBACCO USER 7Y OR GREATE R [facility] Dec 21, 2010 10:20 AM FORMER TOBACCO USER 7Y OR GREATE R [facility] Encounter Notes: All associated encounter notes This section contains the clinical notes associated to the Encounter. Date/Time Encounter Note(s) Provider Source Jan 31, 2024 07:37 AM AUDIOLOGY NOTE: LOCAL TITLE: AUDIOLOGY CLINIC NOTE STANDARD TITLE: AUDIOLOGY NOTE DATE OF NOTE: JAN 31, 2024@07:37 ENTRY DATE: JAN 31, 2024@07:37:56 AUTHOR: JOAO RAMIREZ COSIGNER: URGENCY: STATUS: COMPLETED SUBJECT: HEARING EVALUATION DIAGNOSIS: SENSORINEURAL HEARING LOSS RIGHT EAR, MIXED HEARING LOSS LEFT EAR, BILATERAL TINNITUS REASON FOR VISIT: THERAPEUTIC: HEARING AID EVALUATION, 60 minutes. Barbara was seen in this clinic today for a hearing evaluation. is Service Connected for Hearing Loss and Tinnitus. was unaccompanied today. SUBJECTIVE/HISTORY: presented today for an updated hearing evaluation to monitor his asymmetrical hearing loss (left ear poorer). He feels his hearing has remained stable and denied vertigo, otalgia, aural fullness, and drainage, as well as a change in tinnitus. did report some light-headedness, which he feels occurs when he is dehydrated. HEARING AIDS (Right/Left) issued 03/13/21: Make: Resound Model: ONE 61 MINI LIANA Serial Numbers [id number] Manager Interventional Size: 2MP Dome: Medium open right/medium closed left ACCESSORIES: iPhone/Smart 3D floridalma OBJECTIVE/PROCEDURES: AUDIOMETRICS: Air conduction, Bone conduction, Speech testing Transducer: Circumaural headphones Reliability: Good *See results via Audiogram display under Tools->Audiology->ROES or see [facility] database. OTOSCOPY: Right: minimal non-occluding cerumen and normal appearing tympanic membrane. Left: minimal non-occluding cerumen and normal appearing tympanic membrane. TYMPANOMETRY: RIGHT EAR: Type Ad Pressure: Normal Compliance: Deep Volume: Normal LEFT EAR: Type A Pressure: Normal Compliance: Normal Volume: Normal WORD RECOGNITION: /- word list Right Ear: 96% Level: 65* dB Left Ear: 88% Level: 75* dB SUMMARY: Hearing has changed when compared to the previous evaluation completed on 02/08/2023. Specifically, asymmetry has widened by 15 dB HL (left ear poorer) at 3000 and 4000 Hz. Additionally, there is a new conductive component present today at 3000 Hz for the left ear. RIGHT EAR: Hearing within normal limits through 2000 Hz, sloping to a mild to profound sensorineural hearing loss. Word recognition ability rated as normal. Type Ad tympanogram consistent with hypercompliant tympanic membrane mobility. LEFT EAR: Hearing within normal limits at 1000 Hz, sloping to a mild to profound mixed hearing loss. Word recognition ability rated as mildly impaired. Type A tympanogram consistent with normal tympanic membrane mobility. ACTION/AMPLIFICATION: - Leland remains a good candidate for hearing aid use. - was counseled on their type, degree and configuration of hearing loss. Since asymmetry has widened, ENT referral is warranted. HEARING AID CHECK/SERVICE/PROGRAMMING: - Hearing aids cleaned and checked. Biologic listening check revealed good sound quality from left aid, weak sound from right aid. Right filling hauler replaced, which yielded good sound quality. Domes and sports' locks replaced. - Aids connected to software and programmed to today's hearing evaluation. Overall gain increased for both aids, as gain curves were set quite low. Additionally, the separation between soft, mid, loud curves was very minimal. Adjusted this for more separation. Leland noted good sound quality from aids following adjustments. PLAN: - ENT consultation placed for widening asymmetry and conductive component, left ear. - Leland will return in ~1 year for an updated hearing evaluation as he will be eligible for new aids at this time. - is in agreement with this plan. /megan/ JOAO RAMIREZ Operations Support Analyst Signed: 01/31/2024 11:39 JOAO RAMIREZ [facility]
--- OUTSIDE RECORDS SUMMARY | 2024-02-16 11:44 | XMS_ITS | Clinical Summary ---
Author Name Unknown Organization [facility] Address [place], [place] [address] Care Team Providers Care Skiver Welt End Name Role Phone Corbin Conrad MD Primary Care Provider Allergies No known active allergies Medications Medication Sig Dispensed Refills Start Date End Date Status LIPITOR 10 MG TAB take 1 tablet (10mg) by oral route once daily 0 Active ASPIRIN 81 MG TAB take 1 tablet (81mg) by oral route once daily 0 Active HYDROCODONE-ACETAMINO PHEN 5 MG-500 MG TAB 1-2 tablet Oral EVERY 4 HOURS NEEDED 20 0 08/31/2006 Active atenolol (TENORMIN) 25 mg tablet Take 1 tablet by mouth once daily. 30 tablet 0 09/05/2013 Active simvastatin (ZOCOR) 20 mg tablet Take 1 tablet by mouth at bedtime. 30 tablet 0 09/05/2013 Active clonazePAM (KLONOPIN) 1 mg tablet Take 1 tablet by mouth at bedtime. 30 tablet 0 09/05/2013 Active Active Problems Problem Noted Date Diagnosed Date Adenomatous colon polyp 09/11/2013 Overview: Colonoscopy 09/2013 polyp repeat in 5 years Social History Tobacco Use Types Packs/Day Years Used Date Smoking Tobacco: Former Alcohol Use Standard Drinks/Week Comments Not Asked 0 (1 standard drink = 0.6 oz pur e alcohol) Sex and Gender Information Value Date Recorded Sex Assigned at Not on file Gender Identity Not on file Sexual Orientation Not on file Obstetrics History Last Filed Vital Signs Vital Sign Reading Time Taken Comments Blood Pressure 138/78 09/05/2013 8:21 AM MANAGER CARDIOLOGY Pulse 56 09/05/2013 8:21 AM MANAGER CARDIOLOGY Temperature 36.9 ??C (98.4 ??F) 08/31/2006 12:[address] Respiratory Rate 20 08/31/2006 1:00 PM MANAGER CARDIOLOGY Oxygen Saturation 98% 09/05/2013 8:21 AM MANAGER CARDIOLOGY Inhaled Oxygen Concentration - - Weight 93.3 kg (205 lb 11 oz) 08/31/2006 4:00 AM MANAGER CARDIOLOGY Height 180.3 cm (5' 11) 08/30/2006 6:00 AM MANAGER CARDIOLOGY Body Mass Index 28.69 08/30/2006 6:00 AM MANAGER CARDIOLOGY Plan of Treatment Health Maintenance Due Date Last Done Comments Tdap 1957 Depression screening for age 12+ 1958 BMI (ht and wt on same day) for age 18+ 1964 Hepatitis C screening for age 18-79 1964 Tetanus booster 1966 Zoster (shingles) series for age 50+ (1 of 2) 04/15/19 96 Pneumococcal series for age 65+ (1 of 1 - PCV) 011 COVID-19 vaccine series ( - 2022-24 season) 3 Influenza for age 65+ 06/03/2024 Advance Directives * Full Code (Latest Code Status on File) Date Activated Date Inactivated Comments 08/30/2006 6:13 AM 08/31/2006 5:50 PM Care Teams Skiver Welt End Relationship Specialty Start Date End Date Corbin Conrad MD [address] [place] [id number] PCP - General 04/20/05
--- OUTSIDE RECORDS SUMMARY | 2024-02-16 11:44 | XMS_ITS | Clinical Summary ---
Author Name Unknown Organization [facility] Address [address] [place] [address] Care Team Providers Care Resource Analyst Name Role Phone Corbin Conrad MD Primary Care Provider [phone] Source Comments You are receiving this document as you are listed as the primary care provider,follow-up provider, or the patient has been referred to you for consultation.This is in compliance with the Medicare andWhite Hospitalcaid EHR Incentive Program,which states Providers who transition their patient to another setting of careor provider of care or refers their patient to another provider of care shouldprovide summary care record for each transition of care or referral. [facility] Allergies No known active allergies Medications Medication Sig Dispensed Refills Start Date End Date Status clonazePAM (AKA KLONOPIN) 1 MG tablet Take 1 mg by mouth at bedtime as needed for Anxiety. 08/08/2013 Active simvastatin (AKA ZOCOR) 20 MG tablet Take 20 mg by mouth nightly. 08/08/2013 Active ATENolol (AKA TENORMIN) 25 MG tablet Take 25 mg by mouth daily (every 24 hours). 08/08/2013 Active influenza vaccine High-Dose (AKA FLUZONE) 0.5 ML injectionIndications: SUSAN NUNO TueMay 14, 2015 8:59 AM Received from: External Pharmacy Indications: PN: SUSAN NUNO TueMay 14, 2015 8:59 AM Received from: External Pharmacy 0 07/01/2014 Active hydrochlorothiazide 12.5 MG capsuleIndications:SUSAN HIDALGO TueMay 26, 2016 9:18 AM Received from: External Pharmacy Indications: PN: SUSAN NUNO TueMay 26, 2016 9:18 AM Received from: External Pharmacy 2 03/17/2016 Active Active Problems Problem Noted Date Diagnosed Date History of nonmelanoma skin cancer 11/21/2013 Immunizations Name Administration Dates Next Due Td 10/17/1989 Social History Tobacco Use Types Packs/Day Years Used Date Smoking Tobacco: Former Smokeless Tobacco: Never Sex and Gender Information Value Date Recorded Sex Assigned at Not on file Gender Identity Not on file Sexual Orientation Not on file Last Filed Vital Signs Vital Sign Reading Time Taken Comments Blood Pressure 164/82 05/10/2018 7:45 AM CDT Pulse 62 05/10/2018 7:45 AM CDT Temperature - - Respiratory Rate - - Oxygen Saturation - - Inhaled Oxygen Concentration - - Weight - - Height - - Body Mass Index - - Plan of Treatment Upcoming Encounters Date Type Department Care Team (Late st Contact Info) Description 09/04/2024 2:15 PM MED SPA MANAGER Appointment [facility] [address] [place], [place] [phone] Deann Moran MD [address] [place] [address] [phone] Health Maintenance Due Date Last Done Comments Hep C Screening (Preventive Services) 1945 Medicare Annual Wellness Visit 1945 DTaP/Tdap/Td (1 - Tdap) 10/18/1989 10/17/1989 Zoster/Shingles (1 of 2) 1996 Pneumococcal 65+ Yrs (1 - PCV) 2011 COVID-19 Vaccine ( season) 2023 05/18/2023, 06/27/2022, 01/11/2022, Additional history exists Influenza (Season Ended) 2024 022, 06/18/2021, 06/13/2020 HepA Aged Out No longer eligi ble based on patient's age to complete this topic HepB Aged Out No longer eligi ble based on patient's age to complete this topic Hib Aged Out No longer eligi ble based on patient's age to complete this topic IPV (Polio) Aged Out No longer eligi ble based on patient's age to complete this topic MCV4 Aged Out No longer eligi ble based on patient's age to complete this topic Care Teams Resource Analyst Relationship Specialty Start Date [place] [address] PCP - General 11/28/13
== END 2024-01-26 10:17 | disposition home or self-care (01) ==
LOC: NFLDREF 02-16 11:40
PROVIDERS: PCP Family Medicine; Referring Provider Family Medicine; Visit Provider Family Medicine
DX: E78.5 Hyperlipidemia, unspecified (principal); Z12.5 Encounter for screening for malignant neoplasm of prostate
CPT/HCPCS: 80048; 80061; G0103

== ENCOUNTER 2024-07-12 13:19 | Outpatient (CLI) | payer MEDICARE, SELFPAY ==
--- OUTSIDE RECORDS SUMMARY | 2024-07-12 13:25 | XMS_ITS | Encounter Summary ---
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 This section includes the names of all active insurance providers for the patient. Insurance Provider Type of Coverage Plan Name Start of Policy Coverage End of Policy Coverage Group Number Member ID Insurance Provider's Telephone Number Policy Oshea's Name Patient's Relationship to Policy Oshea [facility] (WNR) MEDICARE ADVANTAGE [facility] (WNR) Oct 03, 2020 [id number] [phone] FULL,GUERRERO AEL PATIENT [place] [facility] (WNR) MEDICARE ADVANTAGE [facility] (WNR) Oct 03, 2020 [id number] [phone] FULL,GUERRERO AEL PATIENT [place] [facility] (WNR) MEDICARE ADVANTAGE [facility] (WNR) Oct 03, 2020 [id number] [phone] FULL,GUERERRO AEL PATIENT BCBS [facility] (WNR) MEDICARE ADVANTAGE MEDIC ARE TJ Rose Oct 03, 2016 [id number] [phone] FULL,GUERRERO AEL PATIENT Selected Encounter This section includes the information on record at [place] for the Encounter. Date/Time Encounter Type Encounter Description Reason Pro vider Source Apr 10, 2024 01:22 PM Outpatient Encounter PRIMARY CARE/MEDICINE IHE Encounter Template Text not used by [place] Social History: Smoking Status (Most current) and Tobacco Use (All prior to encounter date) This section includes the most current, and the historical, smoking and tobacco- related health factors from the [place] facility where the Encounter took place. Current Smoking Status This section includes the most current smoking, or tobacco-related health factor, from the [place] facility where the Encounter took place. Date/Time Current Smoking Status Comment Facil ity Jan 31, 2024 08:30 AM VA-TOBACCO FORMER USER [facility] Tobacco Use History This section includes a history of the smoking, or tobacco-related health factors, that were collected on or before the date of the Encounter. The data comes from the [place] facility where the Encounter took place. Date/Time Smoking Status/Tobacco Use Comment F acility Jan 31, 2024 08:30 AM VA-TOBACCO QUIT 15 YRS OR MORE [facility] February 08, 2023 10:00 AM VA-TOBACCO FORMER USER [facility] February 08, 2023 10:00 AM VA-TOBACCO QUIT 15 YRS OR MORE [facility] February 08, 2022 03:00 PM VA-TOBACCO FORMER USER [facility] February 08, 2022 03:00 PM VA-TOBACCO QUIT 15 YRS OR MORE [facility] February 16, 2021 01:30 PM VA-TOBACCO FORMER USER [facility] February 16, 2021 01:30 PM VA-TOBACCO QUIT 15 YRS OR MORE [facility] Apr 11, 2020 03:22 PM VA-TOBACCO FORMER USER [facility] Apr 11, 2020 03:22 PM VA-TOBACCO QUIT 15 YRS OR MORE [facility] Oct 12, 2018 12:54 PM VA-TOBACCO FORMER USER [facility] Oct 12, 2018 12:54 PM VA-TOBACCO QUIT 15 YRS OR MORE [facility] February 02, 2018 09:28 AM FORMER TOBACCO USER 7Y OR GREATE R [facility] February 02, 2016 10:22 AM FORMER TOBACCO USER 7Y OR GREATE R [facility] Jan 13, 2015 08:21 AM FORMER TOBACCO USER 7Y OR GREATE R [facility] Jan 21, 2014 08:15 AM FORMER TOBACCO USER 7Y OR GREATE R [facility] Dec 21, 2010 10:20 AM FORMER TOBACCO USER 7Y OR GREATE R [facility] Radiology Reports: +/- 30 days of the encounter Radiology Reports For cases when an order for radiology services may have been completed prior to the date of the Encounter, the report list includes the Radiology Reports that were completed up to 30 days before dateof the Encounter. For cases when an order for radiology services may have been completed after the date of the Encounter, the report list also includes the Radiology Reports that were completed up to30 days after date of the Encounter. The data comes from all [place] treatment facilities. Date/Time Radiology Report Provider Source Apr 10, 2024 08:32 AM AAA SCREENING STUD Y FOR ABDOMINAL AORTIC ANEURYSM: CATY HAYES [id number] -[phone] M Exm Date: APR 10, 2024@08:32 Req Phys: JEREMY QUEVEDO Loc: [facility] 4D (Req'g Loc) Img Loc: Ultrasound Imaging Service: [place] [address] (Case [id number] COMPLETE) AAA SCREENING STUDY FOR ABDOMINAL(US Detailed) CPT:14372 Reason for Study: Tobacco use hx Clinical History: IS NOT under investigation for COVID-19 or is COVID-19 negative Hx Tobacco use - please evaluate for AAA, Thanks Responsible provider name and phone number to notify for critical findings if other than user placing the order and pager listed below: User placing orders pager: [phone] OLAMIDE Quevedo LAST CREATININE____ Report Status: Verified Date Reported: APR 10, 2024 Date Verified: APR 10, 2024 Escort Service Attendant E-Sig:/ES/BROCK CARRERA MD Report: Abdominal Aorta Ultrasound (screening) Comparison study: None Clinical history: Hx Tobacco use - please evaluate for AAA Findings: On the longitudinal view the AP diameters were as follows: Proximal (suprarenal): 2.6 cm Mid (infrarenal): 2.3 cm Distal: 1.9 cm Right BISHNU: 1.5 cm Left BISHNU: 1.5 cm Impression: 1. The infrarenal abdominal aorta is not aneurysmal. 2. The right common iliac artery is not aneurysmal. 3. The left common iliac artery is not aneurysmal. Recommendations from the [place] Vascular Surgery Department, updated 2023: Small infrarenal abdominal aortic aneurysms (AAA), less than 5.0 cm in diameter, should be followed by the primary provider until the aneurysm reaches 5.0 cm. AAA 3.0 cm - 3.9 cm Ultrasound every 3 years AAA 4.0 cm - 4.9 cm Ultrasound every 1 year AAA 5.0 cm or greater, CTA with contrast and vascular consult Iliac artery aneurysms: Iliac aneurysms should be followed by the primary provider until they reach 3.5 cm. Iliac aneurysm - < 3.0 cm ultrasound every 12 months Iliac aneurysm - 3.0 - 3.5 cm ultrasound every 6 months Iliac aneurysm - 3.5 cm or greater, CTA with contrast and refer to Vascular Surgery * Ascending thoracic aortic aneurysms are managed by cardiothoracic surgery * The presence of thrombus in the aneurysm is expected and does not change the recommendations I, BROCK CARRERA, have reviewed the images and report. Primary Interpreting Staff: BROCK CARRERA MD, RADIOLOGIST (Escort Service Attendant) Primary Interpreting Resident: JOHN LA MD, FLOORWORKER LASTING /BROCK ALEJANDRE [facility] Encounter Notes: All associated encounter notes This section contains the clinical notes associated to the Encounter. Date/Time Encounter Note(s) Provider Source Apr 10, 2024 01:22 PM LETTERS: LOCAL TITLE: FOLLOW UP RESULTS LETTER STANDARD TITLE: LETTERS DATE OF NOTE: APR 10, 2024@13:22 ENTRY DATE: APR 10, 2024@13:22:05 AUTHOR: ERICA QUEVEDO COSIGNER: URGENCY: STATUS: COMPLETED [facility] [address] [place] [address] Apr CAT[facility] HAYES [address] [facility] [id number] Dear [place]: I am writing to inform you of the results of testing that you had done recently at the [facility]. Report: Abdominal Aorta Ultrasound (screening) Comparison study: None Clinical history: Hx Tobacco use - please evaluate for AAA Findings: On the longitudinal view the AP diameters were as follows: Proximal (suprarenal): 2.6 cm Mid (infrarenal): 2.3 cm Distal: 1.9 cm Right BISHNU: 1.5 cm Left BISHNU: 1.5 cm Impression: 1. The infrarenal abdominal aorta is not aneurysmal. 2. The right common iliac artery is not aneurysmal. 3. The left common iliac artery is not aneurysmal. Additional Comments: Our screening exam for abdominal aortic ultrasound was negative, there was no aneurysm. If you have any further questions or problems, please contact our nursing staff or provider at the following number: [phone]. Sincerely, Berto Quevedo APRN, MANAGER OUTREACH Family Nurse Practitioner JEREMY QUEVEDO [facility]
--- OUTSIDE RECORDS SUMMARY | 2024-07-12 13:25 | XMS_ITS | Continuity of Care Document ---
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 [address] [facility] [facility] [address], [place], [place], [id number], [place]. tel:[phone] Family History Family Member Type Diagnosis Age At Onset No Information Payers Payer name Insurance type Covered green party ID Joaquin douglas(s) [id number] [id number] Social History Type Description Quantity Date Captured Comments Sex Male Smoking Status No Information Chief Complaint And Reason For Visit No Information Reason For Referral Reason For Referral No Information History Of Present Illness Encounter Date Complaint History Of Prese nt Illness No Information Functional Status Date Functional Assessmen t No Information Instructions Date Instruction Additional Infor mation No Information Assessments Type Assessment Date No Information Patient Care Teams Name Effective Dates (start - stop) Status Members No Information
--- OUTSIDE RECORDS SUMMARY | 2024-07-12 13:25 | XMS_ITS | Continuity of Care Document ---
Author Name [facility] Organization [facility] Care Team Providers Care Tool Designer Apprentice Name Role Phone [facility] Unavailable Unavailable Problems Combined list of problems from Department of Defense and Veterans Affairs facilities. It does not include entries that were removed or entered in error. Problem Status Onset Date Problem Type Date of Resolution Comments Source Benign essential hypertension Active Condition [facility] Benign polyp of colon Active Condition Mar 23, 2021 Entered By: VERNA MOSS Comment: 2012 polyp, 2018 none, repeat 06/2024. Note 03/12/2021 and result 03/23/2021 [facility] Benign prostatic hyperplasia Active Condition February 12, 2019 Entered By: VERNA MOSS Comment: 01/2019: residual urine 52ml [facility] Carotid artery stenosis Active Condition February 13, 2018 Entered By: VERNA MOSS Comment: carotid endarterectomy rightMa2022 Entered By: MICHELLE MILLS Comment: stable, moderate plaque left carotid bulb in 2018 [facility] dual care Active Condition February 12 19 Entered By: VERNA MOSS Comment: 2019: Dr. Liriano at [facility] Elevated total bilirubin Active Condition [facility] Ex-smoker Active Condition [facility] Hearing loss Active Condition February 13, 2018 Entered By: VERNA MOSS Comment: [facility] hearing aidesMay 2018 Entered By: VERNA MOSS Comment: Tinnitus well managed [facility] Hyperlipidemia Active Condition [facility] Insomnia Active Condition February 13 18 Entered By: VERNA MOSS Comment: chronic low dose clonazepam [facility] Lumbar spondylosis Active Condition February 12, 2019 Entered By: VERNA MOSS Comment: 2019 MRI: L3/4 severe central stenosis, no neurologic findingsMay 2022 Entered By: MICHELLE MILLS Comment: receiving spinal ablation injections [facility] Obesity Active Condition [facility] Osteoarthritis Active Condition January 312020 Entered By: VERNA MOSS Comment: Right knee replacedMa2020 Entered By: VERNA MOSS Comment: Right hip replacementFebruary 16, 2021 Entered By: VERNA MOSS Comment: Feet: bunions, early claw foot deformity [facility] Simple renal cyst Active Condition 2018 Entered By: VERNA MOSS Comment: Bilateral renal cysts, stable. 7.7cm on right [facility] Social and personal history finding Active Condition Apr 14, 2020 Entered By: VERNA MOSS Comment: Esther, travels often, volunteers abroadJ 2019 Entered By: VERNA MOSS Comment: 2 children, 3 grandchildren, youngest child January 2019. 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 [facility] History of right hip replacement Inactive Condition 07/28/2022 Apr 14, 2020 Entered By: VERNA MOSS Comment: Nov 2019. Had fracture during surgery but recovered well [facility] History of total knee arthroplasty Inactive Condition 07/28/2022 February 12 Entered By: VERNA MOSS Comment: Right knee, good results January 2019 [facility] Diagnosis: ICD-10-CM H90.A21 Snsrnrl hear loss, uni, r ear, with rstrcd hear cntra side Active Diagnosis [facility] Diagnosis: ICD-10-CM I10 Essential (primary) hypertension Active Diagnosis [facility] Diagnosis: ICD-10-CM G47.00 Insomnia, unspecified Active Diagnosis [facility] Diagnosis: ICD-10-CM Z01.118 Encntr for exam of ears and hearing w oth abnormal findings Active Diagnosis [facility] Medications Combined list of outpatient medications from Department of Defense and Veterans Affairs facilities.Medications provided include 1) outpatient medications from the last 15 months, and 2) patient-reported medications. Medication Details Route Status Patient Instructions Prescription Expires Prescription Number Last Dispense Date Ordering Provider Order Date Order Qty Source ASPIRIN TAB TAKE 81MG BY MOUTH EVERY DAY ORAL ACTIVE VERNA MOSS 2021 [facility] ATENOLOL 25MG TAB TAKE ONE TABLET BY MOUTH EVERY DAY ORAL ACTIVE 01/31/2025 [id number] TRISHA THOMPSON 2023 90 [facility] ATENOLOL 25MG TAB TAKE ONE TABLET BY MOUTH EVERY DAY ORAL DISCONT INUED 02/09/2024 [id number] SALVADOR MILLS O 2022 90 [facility] CLONAZEPAM 1MG TAB TAKE ONE TABLET BY MOUTH AT BEDTIME FOR INSOMNIA ORAL ACTIVE 08/02/2024 [id number] TRISHA THOMPSON 2023 30 [facility] CLONAZEPAM 1MG TAB TAKE ONE TABLET BY MOUTH AT BEDTIME FOR INSOMNIA ORAL DISCONT INUED 06/17/2024 [id number] ERICA RUTH 2023 30 [facility] CLONAZEPAM 1MG TAB TAKE ONE TABLET BY MOUTH AT BEDTIME FOR INSOMNIA FOR INSOMNIA ORAL DISCONT INUED 02/29/2024 [id number] SALVADOR MILLS O 2022 30 [facility] CLONAZEPAM 1MG TAB TAKE ONE TABLET BY MOUTH AT BEDTIME FOR INSOMNIA ORAL 08/11/2023 [id number] DENICE MILLSV IA O 2022 30 [facility] SIMVASTATIN 10MG TAB TAKE ONE TABLET BY MOUTH AT BEDTIME FOR CHOLESTE ROL ORAL ACTIVE 01/31/2025 [id number] TRISHA THOMPSON 2023 90 [facility] SIMVASTATIN 10MG TAB TAKE ONE TABLET BY MOUTH AT BEDTIME FOR CHOLESTE ROL ORAL DISCONT INUED 12/16/2024 [id number] ERICA RUTH 2023 90 [facility] SIMVASTATIN 10MG TAB TAKE ONE TABLET BY MOUTH AT BEDTIME FOR CHOLESTE ROL ORAL DISCONT INUED 01/12/2024 [id number] NESS,SYLV IA O 2022 90 [facility] TAMSULOSIN HCL 0.4MG CAP TAKE ONE CAPSULE BY MOUTH AT BEDTIME FOR BENIGN PROSTATI C HYPERTRO PHY (BPH) ORAL ACTIVE 01/31/2025 [id number] TRISHA THOMPSON ER 2023 90 [facility] TAMSULOSIN HCL 0.4MG CAP TAKE ONE CAPSULE BY MOUTH AT BEDTIME FOR BENIGN PROSTATI C HYPERTRO PHY (BPH) ORAL DISCONT INUED 02/09/2024 [id number] RICKS,SYLV IA O 2022 90 [facility] Immunizations Combined list of available immunizations from the Department of Defense and Veterans Affairs facilities. Immunization Series Date Given Administered By Site Reaction Lot Number CVX Code Drug Assembler Seat Status Comments Source COVID-19 (MODERNA), MRNA, LNP-S, PF, 50 MCG/0.5 ML (AGES 12+ YEARS) 2022 312 complet ed [facility] INFLUENZA, HIGH-DOSE, QUADRIVALENT 2022 197 complet ed [facility] COVID-19 (MODERNA), MRNA, LNP-S, BIVALENT, PF, 50 MCG/0.5 ML OR 25MCG/0.25 ML DOSE 2022 229 complet ed [facility] INFLUENZA, UNSPECIFIED FORMULATION 2021 88 complet ed [facility] INFLUENZA, HIGH-DOSE, QUADRIVALENT 2021 197 complet ed [facility] COVID-19 (MODERNA), MRNA, LNP-S, BIVALENT, PF, 50 MCG/0.5 ML OR 25MCG/0.25 ML DOSE 2021 229 complet ed [facility] PNEUMOCOCCAL POLYSACCHARID E PPV23 2021 33 complet ed [facility] TDAP 2021 115 complet ed [facility] COVID-19 (MODERNA), MRNA, LNP-S, PF, 100 MCG/0.5ML DOSE OR 50 MCG/0.25ML DOSE 4 2021 207 complet ed [facility] COVID-19 (MODERNA), MRNA, LNP-S, PF, 100 MCG/0.5ML DOSE OR 50 MCG/0.25ML DOSE 3 2020 207 complet ed [facility] INFLUENZA, HIGH-DOSE, QUADRIVALENT 2020 197 complet ed [facility] INFLUENZA, SEASONAL, INJECTABLE 2020 141 complet ed Fluz[employer] HD 0.7 2020- inj Araceli [facility] COVID-19 (MODERNA), MRNA, LNP-S, PF, 100 MCG/0.5 ML DOSE 2 2020 207 complet ed [facility] COVID-19 (MODERNA), MRNA, LNP-S, PF, 100 MCG/0.5 ML DOSE 1 2020 207 complet ed [facility] INFLUENZA, HIGH-DOSE, QUADRIVALENT 2019 197 complet ed [facility] INFLUENZA, UNSPECIFIED FORMULATION 2019 88 complet ed [facility] ZOSTER RECOMBINANT 2 2018 187 complet ed [facility] ZOSTER RECOMBINANT 1 2018 187 complet ed [facility] TYPHOID, VICPS 2018 101 complet ed [facility] INFLUENZA, HIGH DOSE SEASONAL 2017 135 complet ed [facility] PNEUMOCOCCAL CONJUGATE PCV 13 2017 133 complet ed [facility] INFLUENZA, HIGH DOSE SEASONAL 2014 135 complet ed [facility] INFLUENZA, HIGH DOSE SEASONAL 2013 135 complet ed [facility] INFLUENZA, UNSPECIFIED FORMULATION 2012 88 complet ed [facility] PNEUMOCOCCAL, UNSPECIFIED FORMULATION 2012 109 complet ed [employer] Lot#[id number] Exp March 13 [facility] HEP A-HEP B 2012 104 complet ed [facility] INFLUENZA, HIGH DOSE SEASONAL 2011 135 complet ed [facility] ZOSTER LIVE 2011 121 complet ed [employer] [id number] exp [facility] HEP A-HEP B 2011 104 complet ed [facility] HEP A-HEP B 2011 104 complet ed [facility] TDAP 2011 115 complet ed [employer] Lot# [id number] aExp1 [facility] TYPHOID, ORAL 2011 25 complet ed [facility] HEP A-HEP B 2011 104 complet ed [facility] INFLUENZA, UNSPECIFIED FORMULATION 2010 88 complet ed [facility] INFLUENZA, UNSPECIFIED FORMULATION 2009 88 complet ed [facility] Results Combined list of recent chemistry, [...] Jan 31, 2024 09:01 AM Reporting Lab: [facility] [phone] Performing Lab: [facility] [address] [facility] DRUG SCREEN PANEL,U RINE AMPHETAMINE S [PRESENCE] IN URINE Negative 01/30 Specimen Type: URINE No comment entered. Ordering Provider: ALEX THOMPSON Report Released Date/Time: Jan 31, 2024 09:01 AM Reporting Lab: [facility] [address] Performing Lab: [facility] [address] [facility] DRUG SCREEN PANEL,U RINE COCAINE [PRESENCE] IN URINE Negative 01/30 Specimen Type: URINE No comment entered. Ordering Provider: ALEX THOMPSON Report Released Date/Time: Jan 31, 2024 09:01 AM Reporting Lab: [facility] [address] Performing Lab: [facility] [address] [facility] DRUG SCREEN PANEL,U RINE BENZODIAZEP TAN [PRESENCE] IN URINE BY SCREEN METHOD Negative 01/30 Specimen Type: URINE No comment entered. Ordering Provider: ALEX THOMPSON Report Released Date/Time: Jan 31, 2024 09:01 AM Reporting Lab: [facility] [address] Performing Lab: [facility] [address] [facility] DRUG SCREEN PANEL,U RINE CANNABINOID S [PRESENCE] IN URINE BY SCREEN METHOD Negative 01/30 Specimen Type: URINE No comment entered. Ordering Provider: ALEX THOMPSON Report Released Date/Time: Jan 31, 2024 09:01 AM Reporting Lab: [facility] [address] Performing Lab: [facility] [address] [facility] DRUG SCREEN PANEL,U RINE METHADONE [PRESENCE] IN URINE Negative 01/30 Specimen Type: URINE No comment entered. Ordering Provider: ALEX THOMPSON Report Released Date/Time: Jan 31, 2024 09:01 AM Reporting Lab: [facility] [address] Performing Lab: [facility] [address] [facility] DRUG SCREEN PANEL,U RINE OPIATES [PRESENCE] IN URINE BY SCREEN METHOD Negative 01/30 Specimen Type: URINE No comment entered. Ordering Provider: ALEX THOMPSON Report Released Date/Time: Jan 31, 2024 09:01 AM Reporting Lab: [facility] [address] Performing Lab: [facility] [address] [facility] DRUG SCREEN PANEL,U RINE PHENCYCLIDI NE [PRESENCE] IN URINE Negative 01/30 Specimen Type: URINE No comment entered. Ordering Provider: ALEX THOMPSON Report Released Date/Time: Jan 31, 2024 09:01 AM Reporting Lab: [facility] [address] Performing Lab: [facility] [address] [facility] DRUG SCREEN PANEL,U RINE ETHANOL [MASS/VOLUM E] IN URINE Negative 01/30 Specimen Type: URINE No comment entered. Ordering Provider: ALEX THOMPSON Report Released Date/Time: Jan 31, 2024 09:01 AM Reporting Lab: [facility] [address] Performing Lab: [facility] [address] [facility] DRUG SCREEN PANEL,U RINE CREATININE [MASS/VOLUM E] IN URINE 159.0 mg/dL 20.0 01/30 Specimen Type: URINE No comment entered. Ordering Provider: ALEX THOMPSON Report Released Date/Time: Jan 31, 2024 09:01 AM Reporting Lab: [facility] [address] Performing Lab: [facility] [address] [facility] DRUG SCREEN PANEL,U RINE OXYCODONE [PRESENCE] IN URINE BY SCREEN METHOD Negative 01/30 Specimen Type: URINE No comment entered. Ordering Provider: ALEX THOMPSON Report Released Date/Time: Jan 31, 2024 09:01 AM Reporting Lab: [facility] [address] Performing Lab: [facility] [address] [facility] DRUG SCREEN PANEL,U RINE BUPRENORPHI NE+NORBUPRE NORPHINE [PRESENCE] IN URINE Negative 01/30 Specimen Type: URINE No comment entered. Ordering Provider: ALEX THOMPSON Report Released Date/Time: Jan 31, 2024 09:01 AM Reporting Lab: [facility] [address] Performing Lab: [facility] [address] [facility] DRUG SCREEN PANEL,U RINE TRAMADOL CUTOFF [MASS/VOLUM E] IN URINE FOR SCREEN METHOD Negative 01/30 Specimen Type: URINE No comment entered. Ordering Provider: ALEX THOMPSON Report Released Date/Time: Jan 31, 2024 09:01 AM Reporting Lab: [facility] [address] Performing Lab: [facility] [address] [facility] DRUG SCREEN PANEL,U RINE FENTANYL [PRESENCE] IN URINE Negative 01/30 Specimen Type: URINE No comment entered. Ordering Provider: ALEX THOMPSON Report Released Date/Time: Jan 31, 2024 09:01 AM Reporting Lab: [facility] [address] Performing Lab: [facility] [address] [facility] DRUG SCREEN PANEL,U RINE BARBITURATE S [PRESENCE] IN URINE BY SCREEN METHOD Negative 02/08 Specimen Type: URINE No comment entered. Ordering Provider: MICHELLE MILLS Report Released Date/Time: February 08, 2023 10:20 AM Reporting Lab: [facility] [phone] Performing Lab: [facility] [address] [facility] DRUG SCREEN PANEL,U RINE AMPHETAMINE S [PRESENCE] IN URINE Negative 02/08 Specimen Type: URINE No comment entered. Ordering Provider: MICHELLE MILLS Report Released Date/Time: February 08, 2023 10:20 AM Reporting Lab: [facility] [address] Performing Lab: [facility] [address] [facility] DRUG SCREEN PANEL,U RINE COCAINE [PRESENCE] IN URINE Negative 02/08 Specimen Type: URINE No comment entered. Ordering Provider: MICHELLE MILLS Report Released Date/Time: February 08, 2023 10:20 AM Reporting Lab: [facility] [phone] Performing Lab: [facility] [address] [facility] DRUG SCREEN PANEL,U RINE BENZODIAZEP TAN [PRESENCE] IN URINE BY SCREEN METHOD Negative 02/08 Specimen Type: URINE No comment entered. Ordering Provider: MICHELLE MILLS Report Released Date/Time: February 08, 2023 10:20 AM Reporting Lab: [facility] [address] Performing Lab: [facility] [address] [facility] DRUG SCREEN PANEL,U RINE CANNABINOID S [PRESENCE] IN URINE BY SCREEN METHOD Negative 02/08 Specimen Type: URINE No comment entered. Ordering Provider: MICHELLE MILLS Report Released Date/Time: February 08, 2023 10:20 AM Reporting Lab: [facility] [address] Performing Lab: [facility] [address] [facility] DRUG SCREEN PANEL,U RINE METHADONE [PRESENCE] IN URINE Negative 02/08 Specimen Type: URINE No comment entered. Ordering Provider: MICHELLE MILLS Report Released Date/Time: February 08, 2023 10:20 AM Reporting Lab: [facility] [address] Performing Lab: [facility] [address] [facility] DRUG SCREEN PANEL,U RINE OPIATES [PRESENCE] IN URINE BY SCREEN METHOD Negative 02/08 Specimen Type: URINE No comment entered. Ordering Provider: MICHELLE MILLS Report Released Date/Time: February 08, 2023 10:20 AM Reporting Lab: [facility] [address] Performing Lab: [facility] [address] [facility] DRUG SCREEN PANEL,U RINE PHENCYCLIDI NE [PRESENCE] IN URINE Negative 02/08 Specimen Type: URINE No comment entered. Ordering Provider: MICHELLE MILLS Report Released Date/Time: February 08, 2023 10:20 AM Reporting Lab: [facility] [address] Performing Lab: [facility] [address] [facility] DRUG SCREEN PANEL,U RINE ETHANOL [MASS/VOLUM E] IN URINE Negative 02/08 Specimen Type: URINE No comment entered. Ordering Provider: MICHELLE MILLS Report Released Date/Time: February 08, 2023 10:20 AM Reporting Lab: [facility] [address] Performing Lab: [facility] [address] [facility] DRUG SCREEN PANEL,U RINE CREATININE [MASS/VOLUM E] IN URINE 103.3 mg/dL 20.0 02/08 Specimen Type: URINE No comment entered. Ordering Provider: MICHELLE MILLS Report Released Date/Time: February 08, 2023 10:20 AM Reporting Lab: [facility] [address] Performing Lab: [facility] [address] [facility] DRUG SCREEN PANEL,U RINE OXYCODONE [PRESENCE] IN URINE BY SCREEN METHOD Negative 02/08 Specimen Type: URINE No comment entered. Ordering Provider: MICHELLE MILLS Report Released Date/Time: February 08, 2023 10:20 AM Reporting Lab: [facility] [address] Performing Lab: [facility] [address] [facility] DRUG SCREEN PANEL,U RINE BUPRENORPHI NE+NORBUPRE NORPHINE [PRESENCE] IN URINE Negative 02/08 Specimen Type: URINE No comment entered. Ordering Provider: MICHELLE MILLS Report Released Date/Time: February 08, 2023 10:20 AM Reporting Lab: [facility] [address] Performing Lab: [facility] [address] [facility] DRUG SCREEN PANEL,U RINE TRAMADOL CUTOFF [MASS/VOLUM E] IN URINE FOR SCREEN METHOD Negative 02/08 Specimen Type: URINE No comment entered. Ordering Provider: MICHELLE MILLS Report Released Date/Time: February 08, 2023 10:20 AM Reporting Lab: [facility] [address] Performing Lab: [facility] [address] [facility] DRUG SCREEN PANEL,U RINE FENTANYL [PRESENCE] IN URINE Negative 02/08 Specimen Type: URINE No comment entered. Ordering Provider: MICHELLE MILLS Report Released Date/Time: February 08, 2023 10:20 AM Reporting Lab: [facility] [address] Performing Lab: [facility] [address] [facility] Vital Signs Combined list of inpatient and outpatient Vital Signs from Department of Defense and Veterans Affairs, ranging from 12 months to all on record, depending upon the facility. Vital Sign Value Date Comments Source SYSTOLIC BLOOD PRESSURE 144 01/31/2024 08:30:35 [facility] DIASTOLIC BLOOD PRESSURE 79 01/31/2024 08:30:35 [facility] PULSE OXIMETRY 96 01/31/2024 08:30:35 [facility] WEIGHT 210 01/31/2024 08:30:35 [facility] BMI 30kg/m2 01/31/2024 08:30:35 [facility] PAIN 1 01/31/2024 08:30:35 [facility] HEIGHT 70 01/31/2024 08:30:35 [facility] PULSE 61 01/31/2024 08:30:35 [facility] RESPIRATION 14 01/31/2024 08:30:35 [facility] Encounters Combined list of: 1) Encounters from Department of [facility] Affairs facilities going back up to thelast 18 months. 2) Encounters from the Department of [facility] facilities going back up to 280 months. Location Location Details Encounter Type Encounter Number Reason For Visit Attending Provider ADM Date DC Date Status Disposition Source [facility]AR[facility] FITTING/CH ECKING [id number] Diagnos is: ICD-10- CM Z01.118 Encntr for exam of ears and hearing w oth abnorma l finding s
ROSETTE STEVENSON 02/08 [facility] OFFICE O/P EST MOD 30-39 MIN [id number] Diagnos is: ICD-10- CM G47.00 Insomni a, unspeci fied
NESS,SYLVI A O 02/08 [facility] Outpatient Encounter [id number] NESS,SYLVI A O 05/12 [facility] [place] [facility] Outpatient Encounter [id number] 05/18 [facility]patient Encounter [id number] 08/29 [facility] [place] Outpatient Encounter [id number] 08/29 [place] [facility] [place] [facility] Encounter [id number] 08/29 [place] [facility] [place] [facility] Outpatient Encounter [id number] 09/11 [place] [facility] [place] [facility] Outpatient Encounter [id number] BRENNANDK GERMAIN 12/15 [place] [facility] [place] Outpatient Encounter [id number] Emily KEN 12/15 [facility] [place] [facility] Outpatient Encounter [id number] 12/15 [facility] [place] [facility] Outpatient Encounter [id number] 01/30 [facility] [place] [facility] OFFICE O/P EST MOD 30 MIN [id number] Diagnos is: ICD-10- CM I10 Essenti al (primar y) hyperte nsion<b r/> Milton THOMPSON HRISTOPHER 01/30 [facility] HE[facility]ING A[facility] REPAIR/MOD IFYING [id number] Diagnos is: ICD-10- CM H90.A21 Snsrnrl hear loss, uni, r ear, with rstrcd hear cntra side
Cipriano RAMIREZ R 01/30 [facility] [place] [facility] Outpatient Encounter [id number] 04/10 [facility] Social History Combined list of available smoking, tobacco, and other social history from Department of Defense and Veterans Affairs facilities. Social History Type Response Date Comment [facility] Tobacco smoking status NHIS VA-TOBACCO QUIT 15 YRS OR MORE 01/31/2024 [facility] History of tobacco use VA-[facility]ACCO FORMER USER 01/31/2024 [facility] History of tobacco use [facility]-TOBACCO FORMER USER 02/08/2023 [facility] History of tobacco use VA-TOBACCO QUIT 1 5 YRS OR MORE 02/08/2022 [facility] History of tobacco use VA-TOBACCO FORMER USER 02/16/2021 [facility] History of tobacco use VA-TOBACCO QUIT 1 5 YRS OR MORE 04/11/2020 [facility] History of tobacco use VA-TOBACCO QUIT 1 5 YRS OR MORE 10/12/2018 [facility] History of tobacco use FORMER TOBACCO US ER 7Y OR GREATER 02/02/2018 [facility] History of tobacco use FORMER TOBACCO US ER 7Y OR GREATER 02/02/2016 [facility] History of tobacco use FORMER TOBACCO US ER 7Y OR GREATER 01/13/2015 [facility] History of tobacco use FORMER TOBACCO US ER 7Y OR GREATER 01/21/2014 [facility] History of tobacco use FORMER TOBACCO US ER 7Y OR GREATER 12/21/2010 [facility]
--- OUTSIDE RECORDS SUMMARY | 2024-07-12 13:26 | XMS_ITS | Clinical Summary ---
[facility] Organization [facility] Address [address] [place] [address] Care Team Providers Care Aerospace Engineer Officer Armament Name Role Phone Corbin Conrad MD Primary Care Provider [phone] Source Comments You are receiving this document as you are listed as the primary care provider,follow-up provider, or the patient has been referred to you for consultation.This is in compliance with the Medicare and[facility] EHR Incentive Program,which states Providers who transition their patient to another setting of careor provider of care or refers their patient to another provider of care shouldprovide summary care record for each transition of care or referral. [facility] Allergies No known active allergies Medications Medication [...] st Contact Info) Description 09/04/2024 2:15 PM GUIDANCE ADVISER Appointment [facility] [address] [place], [place] [id number] Deann Moran MD [facility] [place], [place] [id number] Health Maintenance Due Date Last Done Comments Hep C Screening (Preventive Services) 1945 Medicare Annual Wellness Visit 1945 DTaP/Tdap/Td (1 - Tdap) 10/18/1989 10/17/1989 Zoster/Shingles (1 of 2) 1996 Pneumococcal 65+ Yrs (1 - PCV) 2011 RSV (1 - 1-dose 75+ series) 2021 COVID-19 Vaccine ( - season) 2024 05/18/2023, 06/27/2022, 01/11/2022, Additional history exists Influenza (#1) 2024 07/14/2022, 06/03, 06/13/2020 HepA Aged Out No longer eligi ble based on patient's age to complete this topic HepB Aged Out No longer eligi ble based on patient's age to complete this topic Hib Aged Out No longer eligi ble based on patient's age to complete this topic IPV (Polio) Aged Out No longer eligi ble based on patient's age to complete this topic RSV Aged Out No longer eligi ble based on patient's age to complete this topic MCV4 Aged Out No longer eligi ble based on patient's age to complete this topic Care Teams Aerospace Engineer Officer Armament Relationship Specialty Start Date [place] [address] PCP - General 11/28/13
--- OUTSIDE RECORDS SUMMARY | 2024-07-12 13:26 | XMS_ITS | Clinical Summary ---
Author Organization [facility] Address [place], [place] [address] Care Team Providers Care Electronics Technology Department Chair Name Role Phone Corbin Conrad MD Primary Care Provider + [phone] Allergies No known active allergies Medications Medication [...] Date Diagnosed Date Adenomatous colon polyp 09/11/2013 Overview (09/11/2013): Colonoscopy 09/2013 polyp repeat in 5 years [...] Comments Blood Pressure 138/78 09/05/2013 8:21 AM FURNACE REPAIRER Pulse 56 09/05/2013 8:21 AM FURNACE REPAIRER Temperature 36.9 ??C (98.4 ??F) 08/31/2006 12:[address] Respiratory Rate 20 08/31/2006 1:00 PM FURNACE REPAIRER Oxygen Saturation 98% 09/05/2013 8:21 AM FURNACE REPAIRER Inhaled Oxygen Concentration - - Weight 93.3 kg (205 lb 11 oz) 08/31/2006 4:00 AM FURNACE REPAIRER Height 180.3 cm (5' 11) 08/30/2006 6:00 AM FURNACE REPAIRER Body Mass Index 28.69 08/30/2006 6:00 AM FURNACE REPAIRER Plan of Treatment Upcoming Encounters Date Type Department Care Team (Late st Contact Info) Description 07/12/2024 3:00 PM CDT Ancillary Procedure [facility] [address] [place] [address] Health Maintenance Due Date Last Done Comments Tdap 1957 Depression screening for age 12+ 1958 BMI (ht and wt on same day) for age 18+ 1964 Hepatitis C screening for age 18-79 1964 Tetanus booster 1966 Zoster (shingles) series for age 50+ (1 of 2) 04/15/19 96 Pneumococcal series for age 65+ (1 of 1 - PCV) 011 RSV vaccine for adults or pr egnancy (1 - 1-dose 75+ series) 2021 COVID-19 vaccine series ( - 2023- season) 4 Influenza for age 65+ 06/03/2024 Advance Directives * Full Code (Latest Code Status on File) Date Activated Date Inactivated Comments 08/30/2006 6:13 AM 08/31/2006 5:50 PM Care Teams Electronics Technology Department Chair Relationship Specialty Start Date End Date Corbin Conrad MD [address] [place] [id number] [facility] - General 04/20/05
--- NOTE | 2024-07-12 13:45 | CRLHL7_ITS ---
For Patients: As a result of the Century Cures Act, medical imaging exams and procedure reports are released immediately into your electronic medical record. You may view this report before your referring provider. If you have questions, please contact your health care provider. INDICATION Amaurosis fugax. Technique Multiplanar multisequence noncontrast MR images of the brain. COMPARISON: None. FINDINGS: Mild diffuse cerebral volume loss. No mass effect or midline shift. Scattered and patchy FLAIR hyperintensities in the supratentorial white matter and tabby, typical for tahe-ec-zyrntwyi chronic microvascular ischemic changes. No recent intracranial hemorrhage or pathologic extra-axial fluid collection. Punctate susceptibility left brachium pontis, typical for a chronic microhemorrhage or mineralization. No diffusion restriction to suggest acute infarction. The major arterial flow voids of the skullbase are preserved. Globes are symmetric. Mild paranasal sinus mucosal thickening. The mastoid air cells are clear. IMPRESSION: 1. No acute intracranial abnormality. 2. Fxzw-ek-mxsbubww chronic microvascular ischemic changes and mild diffuse cerebral volume loss. Dictated by Pop Mckeon MD @ 07/12/2024 3:11:24 PM (Electronically Signed)
--- NOTE | 2024-07-12 16:00 | CRLHL7_ITS ---
For Patients: As a result of the Century Cures Act, medical imaging exams and procedure reports are released immediately into your electronic medical record. You may view this report before your referring provider. If you have questions, please contact your health care provider. INDICATION: Amaurosis fugax, history of right carotid endarterectomy. TECHNIQUE: The carotid circulations and the vertebral arteries in the neck were examined with mosley-scale ultrasound, color-flow and Doppler spectral analysis. Degrees of stenosis were determined using SRU 2002 Consensus Panel Criteria. COMPARISON: None. FINDINGS: Multiple sonographic images with grayscale, color Doppler and spectral Doppler analysis were obtained demonstrate visualized atherosclerotic plaque in the carotid arteries bilaterally. Right ICA peak velocity: 100 cm/sec. Right ICA/CCA ratio: 1.0. Left ICA peak velocity: 145 cm/sec. Left ICA/CCA ratio: 1.6. Spectral waveforms are within normal limits. Both vertebral arteries are antegrade. Irregular heart rate noted throughout the exam. Pulses by difference, typically seen with aortic regurgitation. IMPRESSION: 1. Bilateral carotid artery atherosclerosis. 2. Estimated stenosis in the right internal carotid artery is less than 50% by SRU 2002 Consensus Panel Criteria. 3. Estimated stenosis in the left internal carotid artery is less than 50% by SRU 2002 Consensus Panel Criteria. Dictated by Steffi Esparza MD @ 07/12/2024 6:30:20 PM (Electronically Signed)
[2024-07-12] MEDS: PERFLUTREN LIPID MICROSPHERES 2 ML VIAL IV (16:04)
== END 2024-07-12 13:20 | disposition home or self-care (01) ==
PROVIDERS: PCP Family Medicine; Visit Provider Family Medicine
DX: G45.3 Amaurosis fugax (principal); I67.82 Cerebral ischemia; I65.23 Occlusion and stenosis of bilateral carotid arteries; I34.0 Nonrheumatic mitral (valve) insufficiency; R35.0 Frequency of micturition; Z98.890 Other specified postprocedural states
CPT/HCPCS: 70551; 93306; 93880; Q9957

== ENCOUNTER 2024-08-01 10:50 | Outpatient (CLI) | payer MEDICARE, SELFPAY ==
--- OUTSIDE RECORDS SUMMARY | 2024-08-01 10:53 | XMS_ITS | Encounter Summary ---
Author Name [facility] Organization [facility] Address [address] [place] [address] Care Team Providers Care Sales Incentive Analyst Name Role Phone DILEEP RUTH Primary Care [...] Oshea's Name Patient's Relationship to Policy Oshea BCBS [facility] (WNR) MEDICARE ADVANTAGE [facility] (WNR) Oct 03, 2020 [id number] [phone] FULL,GUERRERO AEL PATIENT [place]BS [place] [facility] (WNR) MEDICARE ADVANTAGE [facility] (WNR) Oct 03, 2020 [id number] [phone] FULL,GUERRERO AEL PATIENT [place] [facility] (WNR) MEDICARE ADVANTAGE [facility] (WNR) Oct 03, 2020 [id number] [phone] FULL,GUERRERO AEL PATIENT BCBS [facility] (WNR) MEDICARE ADVANTAGE MEDIC ARE TJ Rose Oct 03, 2016 [id number] [phone] FULL,GUERRERO AEL PATIENT Selected Encounter This section includes the information on record at [place] for the Encounter. Date/Time Encounter Type Encounter Description Reason Pro vider Source Jul 23, 2024 01:15 PM Outpatient Encounter COMMUNITY CARE CONSULT [facility] Encounter Template Text not used by [place] Plan of Treatment: Future Appointments (+ 6 months) and Future Tests (+/- 45 days) The Plan of Treatment section includes future care activities for the [facility] This section includes future appointments and future orders which are active, pending or scheduled. Active, Pending, and Scheduled Orders This section includes a listing of several types of active, pending, and scheduled orders, including clinic medications orders, diagnostic test orders, procedure orders and consult orders; where the start date of the order is 45 days before the date of the Encounter or 45 days after the date of theEncounter. The data comes from all [place] treatment facilities. Test Date/Time Test Type Test Details Facility Name Jul 31, 2024 12:55 PM Consult Order NEUROLOGY OUTPT Cons Test [facility] Jul 31, 2024 12:55 PM Consult Order UROLOGY OU TPT Cons Test [facility] Aug 31, 2024 12:00 AM Imaging - CT Scan Order CT UROGRAM PROTOCOL (P) [facility] Social History: Smoking Status (Most current) and Tobacco Use (All prior to encounter date) This section includes the most current, and the historical, smoking and tobacco- related health factors from the [place] facility where the Encounter took place. Current Smoking Status This section includes the most current smoking, or tobacco-related health factor, from the [place] facility where the Encounter took place. Date/Time Current Smoking Status Comment Facil ity Jan 31, 2024 08:30 AM VA-TOBACCO FORMER USER [facility] Tobacco Use History This section includes a history of the smoking, or tobacco-related health factors, that were collected on or before the date of the Encounter. The data comes from the [place] facility where the Encounter took place. Date/Time Smoking Status/Tobacco Use Comment F acility Jan 31, 2024 08:30 AM VA-TOBACCO QUIT 15 YRS OR MORE [facility] February 08, 2023 10:00 AM VA-TOBACCO FORMER USER [facility] February 08, 2023 10:00 AM VA-TOBACCO QUIT 15 YRS OR MORE [facility] February 08, 2022 03:00 PM VA-TOBACCO FORMER USER [facility] February 08, 2022 03:00 PM VA-TOBACCO QUIT 15 YRS OR MORE [facility] February 16, 2021 01:30 PM VA-TOBACCO FORMER USER [facility] February 16, 2021 01:30 PM VA-TOBACCO QUIT 15 YRS OR MORE [facility] Apr 11, 2020 03:22 PM VA-TOBACCO FORMER USER [facility] Apr 11, 2020 03:22 PM VA-TOBACCO QUIT 15 YRS OR MORE [facility] Oct 12, 2018 12:54 PM VA-TOBACCO FORMER USER [facility] Oct 12, 2018 12:54 PM VA-TOBACCO QUIT 15 YRS OR MORE [facility] February 02, 2018 09:28 AM FORMER TOBACCO USER 7Y OR GREATE R [facility] February 02, 2016 10:22 AM FORMER TOBACCO USER 7Y OR GREATE R [facility] Jan 13, 2015 08:21 AM FORMER TOBACCO USER 7Y OR GREATE R [facility] Jan 21, 2014 08:15 AM FORMER TOBACCO USER 7Y OR GREATE R [facility] Dec 21, 2010 10:20 AM FORMER TOBACCO USER 7Y OR GREATE R [facility] Encounter Notes: All associated encounter notes This section contains the clinical notes associated to the Encounter. Date/Time Encounter Note(s) Provider Source Jul 23, 2024 01:15 PM PHARMACY NOTE: LOCAL TITLE: PHARMACY NON [place] CARE MEDICATIONS STANDARD TITLE: PHARMACY NOTE DATE OF NOTE: JUL 23, 2024@13:15 ENTRY DATE: JUL 23, 2024@13:15:52 AUTHOR: KENNEDI RAMÍREZ EXP COSIGNER: URGENCY: STATUS: COMPLETED from NON-HI Provider: Date eRX received: JUL 23, 2024 Outside (NON-[place]) provider not authorized to write for prescription(s) through [place] pharmacy. Prescription request REDIRECTED via FAX to one of the following for review: [X][facility] (Dual) Care [ ]Other: eRx Prescription Information: 1. [id number] metoprolol succinate SILVER BELLO 07/23/24 N A A A eRx Qty: 30 eRx # of Refills: 1 eRx Days Supply: SI.5 - 25 mg (0.5 - 1 x 25 mg) orally every day stop atenolol /es/ KENNEDI RAMRÍEZ Pharmacist Signed: 07/23/2024 13:16 KENNEDI RAMÍREZ [facility]
--- OUTSIDE RECORDS SUMMARY | 2024-08-01 10:53 | XMS_ITS | Clinical Summary ---
Author Organization [facility] Address [place], [place] [address] Care Team Providers Care Field Associate Name Role Phone Corbin Conrad MD Primary Care Provider [phone] Allergies No known active allergies Medications Medication [...] Colonoscopy 09/2013 polyp repeat in 5 years Encounters Date Type Department Care Team Description 07/12/2024 3:00 PM CDT Ancillary Procedure [facility] [address] [place] [address] 07/12/2024 Travel from Last 3 Months Social History Tobacco Use Types Packs/Day Years [...] Comments Blood Pressure 138/78 09/05/2013 8:21 AM SOCIAL SERVICE MANAGER Pulse 56 09/05/2013 8:21 AM SOCIAL SERVICE MANAGER Temperature 36.9 ??C (98.4 ??F) 08/31/2006 12:[address] Respiratory Rate 20 08/31/2006 1:00 PM SOCIAL SERVICE MANAGER Oxygen Saturation 98% 09/05/2013 8:21 AM SOCIAL SERVICE MANAGER Inhaled Oxygen Concentration - - Weight 93.3 kg (205 lb 11 oz) 08/31/2006 4:00 AM SOCIAL SERVICE MANAGER Height 180.3 cm (5' 11) 08/30/2006 6:00 AM SOCIAL SERVICE MANAGER Body Mass Index 28.69 08/30/2006 6:00 AM SOCIAL SERVICE MANAGER Plan of Treatment Health Maintenance Due Date [...] season) 4 Influenza for age 65+ 06/03/2024 Procedures Procedure Name Priority Date/Time Associated Diagnosis Comments ECHO TTE COMPLETE W CONTRAST Routine 07/12/2024 4:27 PM CDT Amaurosis fugax from Last 3 Months Results * ECHO TTE COMPLETE W CONTRAST (07/12/2024 4:27 PM CDT) AORTIC VALVE MEAN PG 3 mmHg PEAK TR VELOCITY 2.8 m/s LVEDD 5.2 cm EJECTION FRACTION 55% Anatomical Region Laterality Modality Ultrasound 07/12/2024 3:17 PM CDT Narrative 07/12/2024 4:41 PM CDT ECHOCARDIOGRAM MANUEL Michele FULL ? Accession#: ?? [id number] : ?1945 79 years Study Date: ?? 07/12/2024 3:17:46 PM Gender: M ?BP: ? 169/85 mmHg Height: 178.00 cm ?BSA: ?2.11 m? ? ? Weight: 93.00 kg ? Tech: ? MTS ? Referring MD: SILVER LIRIANO Site: ? [facility] Reading Location: MOBILE OP Patient Location: Outpatient. Procedure: 2D w/ Contrast, Color Doppler and Spectral Doppler. Indication for study: Amaurosis fugax Cardiac Rhythm: Irregular.Study quality: Fair. Final Impressions: 1. Normal LV size, mildly increased wall thickness, low normal global systolic function with an estimated EF of ~ 55%. 2. Right ventricular cavity size is normal, global systolic RV function is normal. 3. The mitral valve is sclerotic, trace mitral regurgitation. 4. Echo contrast was administered to enhance visualization of all left ventricular segments. Chamber Sizes and Function Normal left ventricular size, mildly increased wall thickness, low normal global systolic function with an estimated EF of ~ 55%. No resting regional wall motion abnormality visualized. Left atrial size is normal. Right ventricular cavity size is normal, global systolic RV function is normal. The right atrium is normal. Right atrial volume index is 29 ml/m? ? ?. Right atrial area is 20 cm? ? ?. The pulmonary artery is of normal size and origin. The sinus of Valsalva is normal sized. The ascending aorta is normal sized. Valves, RV Pressures and Diastolic Function The aortic valve is trileaflet, no stenosis and no regurgitation. The mitral valve is sclerotic, trace mitral regurgitation. Spectral Doppler shows Grade 1 pattern of LV diastolic filling. The tricuspid valve is normal in structure. Tricuspid regurgitation is trace regurgitation. The tricuspid regurgitant velocity is 2.8 m/s, the estimated right ventricular systolic pressure is 31 mmHg plus right atrial pressure. The pulmonic valve is normal. Mild pulmonary regurgitation. Masses, Effusion, Shunts There is no pericardial effusion. The inferior vena cava is normal sized, respiratory size variation greater than 50%. No left to right shunting was detected by limited color flow Doppler interrogation of the interatrial septum. MEASUREMENTS AND CALCULATIONS 2-D Measurements and LV Function: LVID (d) 5.2 cm LV FS% (2D) ?? 27 % LVID (s) 3.8 cm LVOT diameter 2.4 cm IVS (d) ??1.3 cm HR ?66 bpm LVPW (d) 1.2 cm LA Vol index ??32 ml/m2 Ao Sinus 3.6 cm RA Vol index ??29 ml/m2 Asc Ao ?? 3.9 cm RA area ? 20 cm?RV Max 4C (d) 3.6 cm Diastology: Mitral ?Tissue Doppler ?Pulmonary veins E Peak 0.4 m/s ??e', Septum ? 0.03 m/s Pulm s ?70.4 cm/s A Peak 0.6 m/s ??e', Lateral ?0.04 m/s Pulm d ?38.9 cm/s E/A ?0.6 ?E/e' Average ?? 10.70 ?Pulm s/d ratio ??1.81 DT ? 342 msec Aortic Valve: Vmax ? 1.0 m/s ??ALEKS (V) ?? 3.39 cm? ? ? VTI ?0.25 m ?? ALEKS (I) ?? 2.70 cm? ? ? LVOT V max 0.7 m/s ??Max PG ?4 mmHg LVOT VTI ?? 0.15 m ?? Mean PG ?? 3 mmHg SV ? 67 ml ?Dim Index 0.59 SV index ?? 32 ml/m? ? ? CO ?4.4 l/min ?CI ?2.1 l/min/m? ? ? Mitral Valve: MVA ?2.2 cm? ? ? MV P 1/2 99 msec Tricuspid Valve and estimated PA pressures: TR Vmax 2.8 m/s TAPSE 2.6 cm TR maxG 31 mmHg Contrast documentation: 6 ml diluted Definity, lot #[id number], [facility] [id number] was administered peripherally to enhance visualization of all left ventricular segments. . This study was interpreted by an [facility] accredited facility. CC: HIM ([facility]) [facility]. ??Final ?? Procedure Note Oliver Landrum MD - 07/12/2024 ECHOCARDIOGRAM MANUEL Michele FULL : 1945 79 years Study Date: 07/12/2024 3:17:46 PM Gender: M BP: 169/85 mmHg Height: 178.00 cm BSA: 2.11 m? ? ? Weight: 93.00 kg Tech: [facility] Referring MD: SILVER LIRIANO Site: [facility] Reading Location: MOBILE OP Patient Location: Outpatient. Procedure: 2D w/ Contrast, Color Doppler and Spectral Doppler. Indication for study: Amaurosis fugax Cardiac Rhythm: Irregular.Study quality: Fair. Final Impressions: 1. Normal LV size, mildly increased wall thickness, low normal globalsystolic function with an estimated EF of ~ 55%. 2. Right ventricular cavity size is normal, global systolic RV functionis normal. 3. The mitral valve is sclerotic, trace mitral regurgitation. 4. Echo contrast was administered to enhance visualization of all leftventricular segments. Chamber Sizes and Function Normal left ventricular size, mildly increased wall thickness, low normalglobal systolic function with an estimated EF of ~ 55%. No restingregional wall motion abnormality visualized. Left atrial size is normal.Right ventricular cavity size is normal, global systolic RV function isnormal. The right atrium is normal. Right atrial volume index is 29ml/m? ? ?. Right atrial area is 20 cm? ? ?. The pulmonary artery is of normalsize and origin. The sinus of Valsalva is normal sized. The ascendingaorta is normal sized. Valves, RV Pressures and Diastolic Function The aortic valve is trileaflet, no stenosis and no regurgitation. Themitral valve is sclerotic, trace mitral regurgitation. Spectral Dopplershows Grade 1 pattern of LV diastolic filling. The tricuspid valve isnormal in structure. Tricuspid regurgitation is trace regurgitation. Thetricuspid regurgitant velocity is 2.8 m/s, the estimated right ventricularsystolic pressure is 31 mmHg plus right atrial pressure. The pulmonicvalve is normal. Mild pulmonary regurgitation. Masses, Effusion, Shunts There is no pericardial effusion. The inferior vena cava is normal sized,respiratory size variation greater than 50%. No left to right shunting wasdetected by limited color flow Doppler interrogation of the interatrialseptum. MEASUREMENTS AND CALCULATIONS 2-D Measurements and LV Function: LVID (d) 5.2 cm LV FS% (2D) 27 % LVID (s) 3.8 cm LVOT diameter 2.4 cm IVS (d) 1.3 cm HR 66 bpm LVPW (d) 1.2 cm LA Vol index 32 ml/m2 Ao Sinus 3.6 cm RA Vol index 29 ml/m2 Asc Ao 3.9 cm RA area 20 cm? ? ? RV Max 4C (d) 3.6 cm Diastology: Mitral Tissue Doppler Pulmonary veins E Peak 0.4 m/s e', Septum 0.03 m/s Pulm s 70.4 cm/s A Peak 0.6 m/s e', Lateral 0.04 m/s Pulm d 38.9 cm/s E/A 0.6 E/e' Average 10.70 Pulm s/d ratio 1.81 DT 342 msec Aortic Valve: Vmax 1.0 m/s ALEKS (V) 3.39 cm? ? ? VTI 0.25 m ALEKS (I) 2.70 cm? ? ? LVOT V max 0.7 m/s Max PG 4 mmHg LVOT VTI 0.15 m Mean PG 3 mmHg SV 67 ml Dim Index 0.59 SV index 32 ml/m? ? ? CO 4.4 l/min CI 2.1 l/min/m? ? ? Mitral Valve: MVA 2.2 cm? ? ? MV P 1/2 99 msec Tricuspid Valve and estimated PA pressures: TR Vmax 2.8 m/s TAPSE 2.6 cm TR maxG 31 mmHg Contrast documentation: 6 ml diluted Definity, lot #[id number], [facility]#[id number] was administered peripherally to enhance visualization of allleft ventricular segments. . This study was interpreted by an [facility] accredited facility. CC: HIM (med records) [facility]. Final Silver Liriano MD ECHO ORD from Last 3 Months Advance Directives * Full Code (Latest Code Status on File) Date Activated Date Inactivated Comments 08/30/2006 6:13 AM 08/31/2006 5:50 PM Care Teams Field Associate Relationship Specialty Start Date End Date Corbin Conrad MD [address] [place] [phone] PCP - General 04/20/05
--- OUTSIDE RECORDS SUMMARY | 2024-08-01 10:53 | XMS_ITS | Encounter Summary ---
Author Name [facility] [facility] [place] Address [address] [place] [address] Care Team Providers Care Forklift Picker Name Role Phone DILEEP RUTH Primary Care [...] Oshea's Name Patient's Relationship to Policy Oshea [facility] (WNR) MEDICARE ADVANTAGE [facility] (WNR) Oct 03, 2020 [id number] [phone] FULLGUERRERO AEL PATIENT BCBS [facility] (WNR) MEDICARE ADVANTAGE [facility] (WNR) Oct 03, 2020 [id number] [phone] FULL,GUERRERO AEL PATIENT BCBS [facility] (WNR) MEDICARE ADVANTAGE [facility] (WNR) Oct 03, 2020 [id number] [phone] FULL,GUERRERO AEL PATIENT [facility] (WNR) MEDICARE ADVANTAGE MEDIC ARE TJ Rose Oct 03, 2016 [id number] [phone] FULL,GUERRERO AEL PATIENT Selected Encounter This section includes the information on record at [place] for the Encounter. Date/Time Encounter Type Encounter Description Reason Pro vider Source Jul 23, 2024 12:00 AM Outpatient Encounter ADMIN PAT ACTIVTIES (MASNONCT) I[facility] Encounter Template Text not used by [place] Plan of Treatment: Future Appointments (+ 6 months) and Future Tests (+/- 45 days) The Plan of Treatment section includes future care activities for the patient from all [place] treatmentfacilities. This section includes future appointments and [...] of theEncounter. The data comes from all [place] treatment facilities. Test Date/Time Test Type Test Details Facility Name Jul 31, 2024 12:55 PM Consult Order NEUROLOGY OUTPT Cons Reagent Tender's Choice [facility] Jul 31, 2024 12:55 PM Consult Order UROLOGY OU TPT Cons Reagent [facility]ender[facility] Choice [facility] Aug 31, 2024 12:00 AM Imaging - CT Scan Order CT UROGRAM PROTOCOL (P) [facility] Social History: Smoking Status (Most current) and Tobacco Use (All prior to encounter date) This section includes the most current, and the historical, smoking and tobacco- related health factors from the [place] facility where the Encounter took place. Current Smoking Status This section includes the most current smoking, or tobacco-related health factor, from the [place] facility where the Encounter took place. Date/Time Current Smoking Status Comment Facil ity Jan 31, 2024 08:30 AM VA-TOBACCO FORMER USER [facility] Tobacco Use History This section includes a history of the smoking, or tobacco-related health factors, that were collected on or before the date of the Encounter. The data comes from the [place] facility where the Encounter took place. Date/Time Smoking Status/Tobacco Use Comment F acility Jan 31, 2024 08:30 AM VA-TOBACCO QUIT 15 YRS OR MORE [facility] February 08, 2023 10:00 AM VA-TOBACCO FORMER USER [facility] February 08, 2023 10:00 AM VA-TOBACCO QUIT 15 YRS OR MORE [facility] February 08, 2022 03:00 PM VA-TOBACCO FORMER USER [facility] February 08, 2022 03:00 PM VA-TOBACCO QUIT 15 YRS OR MORE [facility] February 16, 2021 01:30 PM VA-TOBACCO FORMER USER [facility] February 16, 2021 01:30 PM VA-TOBACCO QUIT 15 YRS OR MORE [facility] Apr 11, 2020 03:22 PM VA-TOBACCO FORMER USER [facility] Apr 11, 2020 03:22 PM VA-TOBACCO QUIT 15 YRS OR MORE [facility] Oct 12, 2018 12:54 PM VA-TOBACCO FORMER USER [facility] Oct 12, 2018 12:54 PM VA-TOBACCO QUIT 15 YRS OR MORE [facility] February 02, 2018 09:28 AM FORMER TOBACCO USER 7Y OR GREATE R [facility] February 02, 2016 10:22 AM FORMER TOBACCO USER 7Y OR GREATE R [facility] Jan 13, 2015 08:21 AM FORMER TOBACCO USER 7Y OR GREATE R [facility] Jan 21, 2014 08:15 AM FORMER TOBACCO USER 7Y OR GREATE R [facility] Dec 21, 2010 10:20 AM FORMER TOBACCO USER 7Y OR GREATE R [facility] Encounter Notes: All associated encounter notes This section contains the clinical notes associated to the Encounter. Date/Time Encounter Note(s) Provider Source Jul 23, 2024 12:00 AM NONVA NOTE: LOCAL TITLE: PRIMARY CARE NONVA NOTE STANDARD TITLE: NONVA NOTE DATE OF NOTE: JUL 23, 2024 ENTRY DATE: JUL 24, 2024@11:44:22 AUTHOR: HIREN UMANA EXP COSIGNER: URGENCY: STATUS: COMPLETED Vist[facility] Imaging - Scanned Document This note contains attached PRIMARY CARE scanned document(s) received from an outside facility. Open [facility] to review the document(s). /megan/ HIREN UMANA Brand Inspector - HIT Signed: 07/24/2024 11:44 HIREN UMANA [facility]
--- OUTSIDE RECORDS SUMMARY | 2024-08-01 10:53 | XMS_ITS | Clinical Summary ---
[facility] Address [address] [place] [address] Care Team Providers Care Computer Aide Name Role Phone Corbin Conrad MD Primary Care Provider [phone] Source Comments You are receiving this document as you are listed as the primary care provider,follow-up provider, or the patient has been referred to you for consultation.This is in compliance with the Medicare and[facility] EHR Incentive Program,which states Providers who transition their patient to another setting of careor provider of care or refers their patient to another provider of care shouldprovide summary care record for each transition of care or referral. [facility] Allerg[facility] No known active allergies Medications Medication [...] st Contact Info) Description 09/04/2024 2:15 PM HOME SUPERVISOR Appointment [facility] [address] [place], [place] [phone] Deann Moran MD [facility] [place], [place] [id number] Health Maintenance Due Date Last Done Comments [...] age to complete this topic Care Teams Computer Aide Relationship Specialty Start Date [place] [address] PCP - General 11/28/13
--- OUTSIDE RECORDS SUMMARY | 2024-08-01 10:53 | XMS_ITS | Continuity of Care Document ---
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 It does not include entries that were removed or entered in error. Problem Status Onset Date Problem Type Date of Resolution Comments Source Benign essential hypertension Active Condition [facility] Benign polyp of colon Active Condition Mar 23, 2021 Entered By: VERNA MOSS Comment: 2012 polyp, 2018 none, repeat 06/2024. Note 03/12/2021 and result 03/23/2021 [facility] Benign prostatic hyperplasia Active Condition February 12, 2019 Entered By: VERNA MOSS Comment: 01/2019: residual urine 52ml [facility] Carotid artery stenosis Active Condition February 13, 2018 Entered By: VERNA MOSS Comment: carotid endarterectomy rightMa2022 Entered By: MICHELLE MILLS Comment: stable, moderate plaque left carotid bulb in 2018 [facility] dual care Active Condition February 12 19 Entered By: VERNA MOSS Comment: 2019: Dr. Liriano at [facility] Elevated total bilirubin Active Condition [facility] Ex-smoker Active Condition [facility] Hearing loss Active Condition February 13, 2018 Entered By: VERNA MOSS Comment: [facility] hearing aidesMay 2018 Entered By: VERNA MOSS Comment: Tinnitus well managed [facility] Hyperlipidemia Active Condition [facility] Insomnia Active Condition February 13 18 Entered By: VERNA MOSS Comment: chronic low dose clonazepam [facility] Lumbar spondylosis Active Condition February 12, 2019 Entered By: VERNA MOSS Comment: 2019 MRI: L3/4 severe central stenosis, no neurologic findingsMay 2022 Entered By: MICHELLE MILLS Comment: receiving spinal ablation injections [facility] Obesity Active Condition [facility] Osteoarthritis Active Condition January 312020 Entered By: VERNA MOSS Comment: Right knee replacedMa2020 Entered By: VERNA MOSS Comment: Right hip replacementFebruary 16, 2021 Entered By: VERNA MOSS Comment: Feet: bunions, early claw foot deformity [facility] Simple renal cyst Active Condition 2018 Entered By: VERNA MOSS Comment: Bilateral renal cysts, stable. 7.7cm on right [facility] Social and personal history finding Active Condition Apr 14, 2020 Entered By: VERNA MOSS Comment: Esther, travels often, volunteers abroadJ 2019 Entered By: VERNA MOSS Comment: 2 children, 3 grandchildren, youngest child January 2019. 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 [facility] History of right hip replacement Inactive Condition 07/28/2022 Apr 14, 2020 Entered By: VERNA MOSS Comment: Nov 2019. Had fracture during surgery but recovered well [facility] History of total knee arthroplasty Inactive Condition 07/28/2022 February 12 Entered By: VERNA MOSS Comment: Right knee, good results January 2019 [facility] Diagnosis: ICD-10-CM H90.A21 Snsrnrl hear loss, uni, r ear, with rstrcd hear cntra side Active Diagnosis [facility] Diagnosis: ICD-10-CM I10 Essential (primary) hypertension Active Diagnosis [facility] Diagnosis: ICD-10-CM G47.00 Insomnia, unspecified Active Diagnosis [facility] Diagnosis: ICD-10-CM Z01.118 Encntr for exam of ears and hearing w oth abnormal findings Active Diagnosis [facility] Medications Combined list of outpatient medications from Department of Defense and Veterans Affairs facilities.Medications provided include 1) outpatient medications from the last 15 months, and 2) patient-reported medications. Medication Details Route Status Patient Instructions Prescription Expires Prescription Number Last Dispense Date Ordering Provider Order Date Order Qty Source ASPIRIN TAB TAKE 81MG BY MOUTH EVERY DAY ORAL ACTIVE VERNA MOSS 2021 [facility] ATENOLOL 25MG TAB TAKE ONE TABLET BY MOUTH EVERY DAY ORAL DISCONT INUED BY PROVIDE R 01/31/2025 [id number] TRISHA THOMPSON 2023 90 [facility] ATENOLOL 25MG TAB TAKE ONE TABLET BY MOUTH EVERY DAY ORAL DISCONT INUED 02/09/2024 [id number] SALVADOR MILLS O 2022 90 [facility] CLONAZEPAM 1MG TAB TAKE ONE TABLET BY MOUTH AT BEDTIME FOR INSOMNIA ORAL ACTIVE 08/02/2024 [id number] TRISHA THOMPSON 2023 30 [facility] CLONAZEPAM 1MG TAB TAKE ONE TABLET BY MOUTH AT BEDTIME FOR INSOMNIA ORAL DISCONT INUED 06/17/2024 [id number] ERICA RUTH 2023 30 [facility] CLONAZEPAM 1MG TAB TAKE ONE TABLET BY MOUTH AT BEDTIME FOR INSOMNIA FOR INSOMNIA ORAL DISCONT INUED 02/29/2024 [id number] SALVADOR MILLS O 2022 30 [facility] CLONAZEPAM 1MG TAB TAKE ONE TABLET BY MOUTH AT BEDTIME FOR INSOMNIA ORAL 08/11/2023 [id number] DENICE MILLSV IA O 2022 30 [facility] SIMVASTATIN 10MG TAB TAKE ONE TABLET BY MOUTH AT BEDTIME FOR CHOLESTE ROL ORAL ACTIVE 01/31/2025 [id number] TRISHA THOMPSON 2023 90 [facility] SIMVASTATIN 10MG TAB TAKE ONE TABLET BY MOUTH AT BEDTIME FOR CHOLESTE ROL ORAL DISCONT INUED 12/16/2024 [id number] ERICA RUTH 2023 90 [facility] SIMVASTATIN 10MG TAB TAKE ONE TABLET BY MOUTH AT BEDTIME FOR CHOLESTE ROL ORAL DISCONT INUED 01/12/2024 [id number] DENICE MILLSV IA O 2022 90 [facility] TAMSULOSIN HCL 0.4MG CAP TAKE ONE CAPSULE BY MOUTH AT BEDTIME FOR BENIGN PROSTATI C HYPERTRO PHY (BPH) ORAL ACTIVE 01/31/2025 [id number] TRISHA THOMPSON 2023 90 [facility] TAMSULOSIN HCL 0.4MG CAP TAKE ONE CAPSULE BY MOUTH AT BEDTIME FOR BENIGN PROSTATI C HYPERTRO PHY (BPH) ORAL DISCONT INUED 02/09/2024 [id number] GENESYLV IA O 2022 90 [facility] Immunizations Combined list of available immunizations from the Department of Defense and Veterans Affairs facilities. 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 Status Comments Source COVID-19 (MODERNA), MRNA, LNP-S, PF, 50 MCG/0.5 ML (AGES 12+ YEARS) 2022 312 complet ed [facility] INFLUENZA, HIGH-DOSE, QUADRIVALENT 2022 197 complet ed [facility] COVID-19 (MODERNA), MRNA, LNP-S, BIVALENT, PF, 50 MCG/0.5 ML OR 25MCG/0.25 ML DOSE 2022 229 complet ed [facility] INFLUENZA, UNSPECIFIED FORMULATION 2021 88 complet ed [facility] INFLUENZA, HIGH-DOSE, QUADRIVALENT 2021 197 complet ed [facility] COVID-19 (MODERNA), MRNA, LNP-S, BIVALENT, PF, 50 MCG/0.5 ML OR 25MCG/0.25 ML DOSE 2021 229 complet ed [facility] PNEUMOCOCCAL POLYSACCHARID E PPV23 2021 33 complet ed [facility] TDAP 2021 115 complet ed [facility] COVID-19 (MODERNA), MRNA, LNP-S, PF, 100 MCG/0.5ML DOSE OR 50 MCG/0.25ML DOSE 4 2021 207 complet ed [facility] COVID-19 (MODERNA), MRNA, LNP-S, PF, 100 MCG/0.5ML DOSE OR 50 MCG/0.25ML DOSE 3 2020 207 complet ed [facility] INFLUENZA, HIGH-DOSE, QUADRIVALENT 2020 197 complet ed [facility] INFLUENZA, SEASONAL, INJECTABLE 2020 141 complet ed [employer] 0.7 2020- inj [facility] COVID-19 (MODERNA), MRNA, LNP-S, PF, 100 MCG/0.5 ML DOSE 2 2020 207 complet ed [facility] COVID-19 (MODERNA), MRNA, LNP-S, PF, 100 MCG/0.5 ML DOSE 1 2020 207 complet ed [facility] INFLUENZA, HIGH-DOSE, QUADRIVALENT 2019 197 complet ed [facility] INFLUENZA, UNSPECIFIED FORMULATION 2019 88 complet ed [facility] ZOSTER RECOMBINANT 2 2018 187 complet ed [facility] ZOSTER RECOMBINANT 1 2018 187 complet ed [facility] TYPHOID, VICPS 2018 101 complet ed [facility] INFLUENZA, HIGH DOSE SEASONAL 2017 135 complet ed [facility] PNEUMOCOCCAL CONJUGATE PCV 13 2017 133 complet ed [facility] INFLUENZA, HIGH DOSE SEASONAL 2014 135 complet ed [facility] INFLUENZA, HIGH DOSE SEASONAL 2013 135 complet ed [facility] INFLUENZA, UNSPECIFIED FORMULATION 2012 88 complet ed [facility] PNEUMOCOCCAL, UNSPECIFIED FORMULATION 2012 109 complet ed [employer] Lot#[id number] Exp March 13 [facility] HEP A-HEP B 2012 104 complet ed [facility] INFLUENZA, HIGH DOSE SEASONAL 2011 135 complet ed [facility] ZOSTER LIVE 2011 121 complet ed [employer] [id number] exp [facility] HEP A-HEP B 2011 104 complet ed [facility] HEP A-HEP B 2011 104 complet ed [facility] TDAP 2011 115 complet ed [employer] Lot# [id number] aExp1 [facility] TYPHOID, ORAL 2011 25 complet ed [facility] HEP A-HEP B 2011 104 complet ed [facility] INFLUENZA, UNSPECIFIED FORMULATION 2010 88 complet ed [facility] INFLUENZA, UNSPECIFIED FORMULATION 2009 88 complet ed [facility] Results Combined list of recent chemistry, [...] Jan 31, 2024 09:01 AM Reporting Lab: [facility] [phone] Performing Lab: [facility] [address] [facility] S[facility]EN [facility],U RINE AMPHETAMINE S [PRESENCE] IN URINE Negative 01/30 Specimen Type: URINE No comment entered. Ordering Provider: ALEX THOMPSON Report Released Date/Time: Jan 31, 2024 09:01 AM Reporting Lab: [facility] [address] Performing Lab: [facility] [address] [facility] DRUG SCREEN PANEL,U RINE COCAINE [PRESENCE] IN URINE Negative 01/30 Specimen Type: URINE No comment entered. Ordering Provider: ALEX THOMPSON Report Released Date/Time: Jan 31, 2024 09:01 AM Reporting Lab: [facility] [address] Performing Lab: [facility] [address] [facility] DRUG SCREEN PANEL,U RINE BENZODIAZEP TAN [PRESENCE] IN URINE BY SCREEN METHOD Negative 01/30 Specimen Type: URINE No comment entered. Ordering Provider: ALEX THOMPSON Report Released Date/Time: Jan 31, 2024 09:01 AM Reporting Lab: [facility] [address] Performing Lab: [facility] [address] [facility] DRUG SCREEN PANEL,U RINE CANNABINOID S [PRESENCE] IN URINE BY SCREEN METHOD Negative 01/30 Specimen Type: URINE No comment entered. Ordering Provider: ALEX THOMPSON Report Released Date/Time: Jan 31, 2024 09:01 AM Reporting Lab: [facility] [address] Performing Lab: [facility] [address] [facility] DRUG SCREEN PANEL,U RINE METHADONE [PRESENCE] IN URINE Negative 01/30 Specimen Type: URINE No comment entered. Ordering Provider: ALEX THOMPSON Report Released Date/Time: Jan 31, 2024 09:01 AM Reporting Lab: [facility] [address] Performing Lab: [facility] [address] [facility] DRUG SCREEN PANEL,U RINE OPIATES [PRESENCE] IN URINE BY SCREEN METHOD Negative 01/30 Specimen Type: URINE No comment entered. Ordering Provider: ALEX THOMPSON Report Released Date/Time: Jan 31, 2024 09:01 AM Reporting Lab: [facility] [address] Performing Lab: [facility] [address] [facility] DRUG SCREEN PANEL,U RINE PHENCYCLIDI NE [PRESENCE] IN URINE Negative 01/30 Specimen Type: URINE No comment entered. Ordering Provider: ALEX THOMPSON Report Released Date/Time: Jan 31, 2024 09:01 AM Reporting Lab: [facility] [address] Performing Lab: [facility] [address] [facility] DRUG SCREEN PANEL,U RINE ETHANOL [MASS/VOLUM E] IN URINE Negative 01/30 Specimen Type: URINE No comment entered. Ordering Provider: ALEX THOMPSON Report Released Date/Time: Jan 31, 2024 09:01 AM Reporting Lab: [facility] [address] Performing Lab: [facility] [address] [facility] DRUG SCREEN PANEL,U RINE CREATININE [MASS/VOLUM E] IN URINE 159.0 mg/dL 20.0 01/30 Specimen Type: URINE No comment entered. Ordering Provider: LAEX THOMPSON Report Released Date/Time: Jan 31, 2024 09:01 AM Reporting Lab: [facility] [address] Performing Lab: [facility] [address] [facility] DRUG SCREEN PANEL,U RINE OXYCODONE [PRESENCE] IN URINE BY SCREEN METHOD Negative 01/30 Specimen Type: URINE No comment entered. Ordering Provider: ALEX THOMPSON Report Released Date/Time: Jan 31, 2024 09:01 AM Reporting Lab: [facility] [address] Performing Lab: [facility] [address] [facility] DRUG SCREEN PANEL,U RINE BUPRENORPHI NE+NORBUPRE NORPHINE [PRESENCE] IN URINE Negative 01/30 Specimen Type: URINE No comment entered. Ordering Provider: ALEX THOMPSON Report Released Date/Time: Jan 31, 2024 09:01 AM Reporting Lab: [facility] [address] Performing Lab: [facility] [address] [facility] DRUG SCREEN PANEL,U RINE TRAMADOL CUTOFF [MASS/VOLUM E] IN URINE FOR SCREEN METHOD Negative 01/30 Specimen Type: URINE No comment entered. Ordering Provider: ALEX THOMPSON Report Released Date/Time: Jan 31, 2024 09:01 AM Reporting Lab: [facility] [address] Performing Lab: [facility] [address] [facility] DRUG SCREEN PANEL,U RINE FENTANYL [PRESENCE] IN URINE Negative 01/30 Specimen Type: URINE No comment entered. Ordering Provider: ALEX THOMPSON Report Released Date/Time: Jan 31, 2024 09:01 AM Reporting Lab: [facility] [address] Performing Lab: [facility] [address] [facility] DRUG SCREEN PANEL,U RINE BARBITURATE S [PRESENCE] IN URINE BY SCREEN METHOD Negative 02/08 Specimen Type: URINE No comment entered. Ordering Provider: MICHELLE MILLS Report Released Date/Time: February 08, 2023 10:20 AM Reporting Lab: [facility] [address] Performing Lab: [facility] [address] [facility] DRUG SCREEN PANEL,U RINE AMPHETAMINE S [PRESENCE] IN URINE Negative 02/08 Specimen Type: URINE No comment entered. Ordering Provider: MICHELLE MILLS Report Released Date/Time: February 08, 2023 10:20 AM Reporting Lab: [facility] [address] Performing Lab: [facility] [address] [facility] DRUG SCREEN PANEL,U RINE COCAINE [PRESENCE] IN URINE Negative 02/08 Specimen Type: URINE No comment entered. Ordering Provider: MICHELLE MILLS Report Released Date/Time: February 08, 2023 10:20 AM Reporting Lab: [facility] [address] Performing Lab: [facility] [address] [facility] DRUG SCREEN PANEL,U RINE BENZODIAZEP TAN [PRESENCE] IN URINE BY SCREEN METHOD Negative 02/08 Specimen Type: URINE No comment entered. Ordering Provider: MICHELLE MILLS Report Released Date/Time: February 08, 2023 10:20 AM Reporting Lab: [facility] [address] Performing Lab: [facility] [address] [facility] DRUG SCREEN PANEL,U RINE CANNABINOID S [PRESENCE] IN URINE BY SCREEN METHOD Negative 02/08 Specimen Type: URINE No comment entered. Ordering Provider: MICHELLE MILLS Report Released Date/Time: February 08, 2023 10:20 AM Reporting Lab: [facility] [address] Performing Lab: [facility] [address] [facility] DRUG SCREEN PANEL,U RINE METHADONE [PRESENCE] IN URINE Negative 02/08 Specimen Type: URINE No comment entered. Ordering Provider: MICHELLE MILLS Report Released Date/Time: February 08, 2023 10:20 AM Reporting Lab: [facility] [address] Performing Lab: [facility] [address] [facility] DRUG SCREEN PANEL,U RINE OPIATES [PRESENCE] IN URINE BY SCREEN METHOD Negative 02/08 Specimen Type: URINE No comment entered. Ordering Provider: MICHELLE MILLS Report Released Date/Time: February 08, 2023 10:20 AM Reporting Lab: [facility] [address] Performing Lab: [facility] [address] [facility] DRUG SCREEN PANEL,U RINE PHENCYCLIDI NE [PRESENCE] IN URINE Negative 02/08 Specimen Type: URINE No comment entered. Ordering Provider: MICHELLE MILLS Report Released Date/Time: February 08, 2023 10:20 AM Reporting Lab: [facility] [address] Performing Lab: [facility] [address] [facility] DRUG SCREEN PANEL,U RINE ETHANOL [MASS/VOLUM E] IN URINE Negative 02/08 Specimen Type: URINE No comment entered. Ordering Provider: MICHELLE MILLS Report Released Date/Time: February 08, 2023 10:20 AM Reporting Lab: [facility] [address] Performing Lab: [facility] [address] [facility] DRUG SCREEN PANEL,U RINE CREATININE [MASS/VOLUM E] IN URINE 103.3 mg/dL 20.0 02/08 Specimen Type: URINE No comment entered. Ordering Provider: MICHELLE MILLS Report Released Date/Time: February 08, 2023 10:20 AM Reporting Lab: [facility] [address] Performing Lab: [facility] [address] [facility] DRUG SCREEN PANEL,U RINE OXYCODONE [PRESENCE] IN URINE BY SCREEN METHOD Negative 02/08 Specimen Type: URINE No comment entered. Ordering Provider: MICHELLE MILLS Report Released Date/Time: February 08, 2023 10:20 AM Reporting Lab: [facility] [address] Performing Lab: [facility] [address] [facility] DRUG SCREEN PANEL,U RINE BUPRENORPHI NE+NORBUPRE NORPHINE [PRESENCE] IN URINE Negative 02/08 Specimen Type: URINE No comment entered. Ordering Provider: MICHELLE MILLS Report Released Date/Time: February 08, 2023 10:20 AM Reporting Lab: [facility] [address] Performing Lab: [facility] [address] [facility] DRUG SCREEN PANEL,U RINE TRAMADOL CUTOFF [MASS/VOLUM E] IN URINE FOR SCREEN METHOD Negative 02/08 Specimen Type: URINE No comment entered. Ordering Provider: MICHELLE MILLS Report Released Date/Time: February 08, 2023 10:20 AM Reporting Lab: [facility] [address] Performing Lab: [facility] [address] [facility] DRUG SCREEN PANEL,U RINE FENTANYL [PRESENCE] IN URINE Negative 02/08 Specimen Type: URINE No comment entered. Ordering Provider: MICHELLE MILLS Report Released Date/Time: February 08, 2023 10:20 AM Reporting Lab: [facility] [address] Performing Lab: [facility] [address] [facility] Vital Signs Combined list of inpatient and outpatient Vital Signs from Department of [facility] and [facility], ranging from 12 months to all on record, depending upon the facility. Vital Sign Value Date Comments Source SYSTOLIC BLOOD PRESSURE 144 01/31/2024 08:30:35 [facility] DIASTOLIC BLOOD PRESSURE 79 01/31/2024 08:30:35 [facility] PULSE OXIMETRY 96 01/31/2024 08:30:35 [facility] 01/31/[facility]24 08:30:35 [facility] BMI 30kg/m2 01/31/2024 08:30:35 [facility] PAIN 1 01/31/2024 08:30:35 [facility] HEIGHT 70 01/31/2024 08:30:35 [facility] PULSE 61 01/31/2024 08:30:35 [facility] RESPIRATION 14 01/31/2024 08:30:35 [place] [facility] Encounters Combined list of: 1) Encounters from Department of Veterans Affairs facilities going back up to thelast 18 months. 2) Encounters from the Department of [facility] facilities going back up to 280 months. Location Location Details Encounter Type Encounter Number Reason For Visit Attending Provider ADM Date DC Date Status Disposition Source [facility] FITTING/[facility] [id number] Diagnos is: ICD-10- CM Z01.118 Encntr for exam of ears and hearing w oth abnorma l finding s
ROSETTE STEVENSON 02/08 [facility] O/P EST MOD 30-39 MIN [id number] Diagnos is: ICD-10- CM G47.00 Insomni a, unspeci fied
NESS,SYLVI A O 02/08 [facility] Outpatient Encounter [id number] NESS,SYLVI A O 05/12 [facility] Outpatient Encounter [id number] 05/18 [facility] Outpatient Encounter [id number] 08/29 [place] [facility] [place] [facility] Outpatient Encounter [id number] 08/29 [place] [facility] [place] [facility] Outpatient Encounter [id number] 08/29 [place] [facility] [place] [facility] Outpatient Encounter [id number] 09/11 [place] [facility] [place] [facility] Out[facility] Encounter [id number] DK AMIN 12/15 [place] [facility] [place] [facility] Outpatient Encounter [id number] Emily KEN 12[facility]15 [facility] [place] [facility] Out[facility] Encounter [id number] 12/15 [place] [facility] [place] [facility] Out[facility] Encounter [id number] 01/30 [place] [facility] [place] [facility] O/P EST MOD 30 MIN [id number] Diagnos is: ICD-10- CM I10 Essenti al (primar y) hyperte nsion<b r/> Milton THOMPSON HRISTOPHER 01/30 [facility] [place] [facility] HEARING AID REPAIR/MOD IFYING [id number] Diagnos is: ICD-10- CM H90.A21 Snsrnrl hear loss, uni, r ear, with rstrcd hear cntra side
Cipriano RAMIREZ 01/30 [place] [facility] [place] [facility] Encounter [id number] 04/10 [place] [facility] [place] [facility] Outpatient Encounter [id number] 07/23 [place] [facility] [place] [facility] Out[facility] Encounter [id number] 07/23 [place] [facility] Encounter [id number] 07/27 [place] [facility] Social History Combined list of available smoking, tobacco, and other social history from Department of Defense and Veterans Affairs facilities. Social History Type Response Date Comment Sourc e Tobacco smoking status NHIS [facility]-TOBACCO FORMER USER 01/31/2024 [facility] History of tobacco use NM-TOBACCO QUIT 1 5 YRS OR MORE 01/31/2024 [facility] History of tobacco use NM-TOBACCO FORMER USER 02/08/2023 [facility] History of tobacco use NM-TOBACCO FORMER USER 02/08/2022 [facility] History of tobacco use NM-TOBACCO FORMER USER 02/16/2021 [facility] History of tobacco use NM-TOBACCO QUIT 1 5 YRS OR MORE 04/11/2020 [facility] History of tobacco use VA-TOBACCO FORMER USER 10/12/2018 [facility] History of tobacco use FORMER TOBACCO US ER 7Y OR GREATER 02/02/2018 [facility] History of tobacco use FORMER TOBACCO US ER 7Y OR GREATER 02/02/2016 [facility] History of tobacco use FORMER TOBACCO US ER 7Y OR GREATER 01/13/2015 [facility] History of tobacco use FORMER TOBACCO US ER 7Y OR GREATER 01/21/2014 [facility] History of tobacco use FORMER TOBACCO US ER 7Y OR GREATER 12/21/2010 [facility] [facility] Plan of Care List of future care activities from [facility] facilities. Additional future care activities may be listed in the Assessment and Plan section. Date/Time Care Activity Care Activity Detail Facili ty 07/31/2024 Consult Order NEUROLOGY OUTPT Cons [facility] 07/31/2024 Consult Order UROLOGY OUTPT Co ns [facility] 08/31/2024 Imaging - CT Scan Order CT UROGRAM PROTOC OL (P) [facility]
--- OUTSIDE RECORDS SUMMARY | 2024-08-01 10:53 | XMS_ITS | Encounter Summary ---
Author Name [facility] Address [address] [place] [address] Care Team Providers Care Data Control Assistant Name Role Phone DILEEP RUTH Primary Care [...] Oshea's Name Patient's Relationship to Policy Oshea [facility] (WNR) MEDICARE ADVANTAGE [facility] (WNR) Oct 03, 2020 [id number] [phone] FULL,GUERRERO AEL PATIENT [place] [facility] (WNR) MEDICARE ADVANTAGE [facility] (WNR) Oct 03, 2020 [id number] [phone] FULL,GUERRERO AEL [place] [facility] (WNR) MEDICARE ADVANTAGE [facility] (WNR) Oct 03, 2020 [id number] [phone] FULL,GUERRERO AEL [facility]IENT [facility]) MEDICARE ADVANTAGE MEDIC ARE [facility] Rose Oct 03, 2016 [id number] [phone] FULL,GUERRERO AEL PATIENT Selected Encounter This section includes the information on record at OR for the Encounter. Date/Time Encounter Type Encounter Description Reason Pro vider Source Jul 27, 2024 12:25 PM Outpatient Encounter TELEPHONE TRIAGE IHE Encounter Template Text not used by OR Plan of Treatment: Future Appointments (+ 6 months) and Future Tests (+/- 45 days) The Plan of Treatment section includes [facility] the [facility] This section includes future appointments [...] of theEncounter. The data comes from all [place] treatment facilities. Test Date/Time Test Type Test Details Facility Name Jul 31, 2024 12:55 PM Consult Order NEUROLOGY OUTPT [facility] Jul 31, 2024 12:55 PM Consult Order UROLOGY OU TPT [facility] Aug 31, 2024 12:00 AM Imaging - CT Scan Order CT UROGRAM PROTOCOL (P) [facility] Social History: Smoking Status (Most current) and Tobacco Use (All prior to encounter date) This section includes the most current, and the historical, smoking and tobacco- related health factors from the [place] facility where the Encounter took place. Current Smoking Status This section includes the most current smoking, or tobacco-related health factor, from the [place] facility where the Encounter took place. Date/Time Current Smoking Status Comment Facil ity Jan 31, 2024 08:30 AM VA-TOBACCO FORMER USER [facility] Tobacco Use History This section includes a history of the smoking, or tobacco-related health factors, that were collected on or before the date of the Encounter. The data comes from the [place] facility where the Encounter took place. Date/Time Smoking Status/Tobacco Use Comment F acility Jan 31, 2024 08:30 AM VA-TOBACCO QUIT 15 YRS OR MORE [facility] February 08, 2023 10:00 AM VA-TOBACCO FORMER USER [facility] February 08, 2023 10:00 AM VA-TOBACCO QUIT 15 YRS OR MORE [facility] February 08, 2022 03:00 PM VA-TOBACCO FORMER USER [facility] February 08, 2022 03:00 PM VA-TOBACCO QUIT 15 YRS OR MORE [facility] February 16, 2021 01:30 PM VA-TOBACCO FORMER USER [facility] February 16, 2021 01:30 PM VA-TOBACCO QUIT 15 YRS OR MORE [facility] Apr 11, 2020 03:22 PM VA-TOBACCO FORMER USER [facility] Apr 11, 2020 03:22 PM VA-TOBACCO QUIT 15 YRS OR MORE [facility] Oct 12, 2018 12:54 PM VA-TOBACCO FORMER USER [facility] Oct 12, 2018 12:54 PM VA-TOBACCO QUIT 15 YRS OR MORE [facility] February 02, 2018 09:28 AM FORMER TOBACCO USER 7Y OR GREATE R [facility] February 02, 2016 10:22 AM FORMER TOBACCO USER 7Y OR GREATE R [facility] Jan 13, 2015 08:21 AM FORMER TOBACCO USER 7Y OR GREATE R [facility] Jan 21, 2014 08:15 AM FORMER TOBACCO USER 7Y OR GREATE R [facility] Dec 21, 2010 10:20 AM FORMER TOBACCO USER 7Y OR GREATE R [facility] Encounter Notes: All associated encounter notes This section contains the clinical notes associated to the Encounter. Date/Time Encounter Note(s) Provider Source Jul 30, 2024 10:12 AM ADDENDUM: LOCAL TITLE: Addendum STANDARD TITLE: ADDENDUM DATE OF NOTE: JUL 30, 2024@10:12:41 ENTRY DATE: JUL 30, 2024@10:12:42 AUTHOR: ANDERSON MOE EXP COSIGNER: URGENCY: STATUS: Feli Sanchez's non-VA provider faxed request to change atenolol to metoprolol and request for VA neurology and urology referrals. See note 07/23/24 in [facility]. confirms these services are not available at his clinic and he would like [facility] referrals. Medication need: Sent to [place] pharmacy and forwarded to co-managed care: 1. 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 Urology ref and CT urogram for hematuria Can you please review and place appropriate consults and make medication change. Thank you! /megan/ ANDERSON MOE RN STAFF NURSE Signed: 07/30/2024 10:18 Receipt Acknowledged By: 07/31/2024 12:55 /megan/ DILEEP RUTH APRN NURSE PRACTITIONER --- Original Document --- 07/27/24 CCC: SCHEDULING ADMINISTRATION: Primary Care Call Center Primary Care Provider Call. Please contact at the following number: [phone] Other: is requesting an consult for neurology and urology. also stated he thinks his meds are changing and would like a call back at the number above to hafsa. This note was created by a V23 [facility] Call Center AMSDillon/SARA. Please do not alert this rfp writer by adding as a signer for future communications. Alerts are not monitored by this user, please reach out to [facility] Leadership instead if indicated. /megan/ Walker BRAGG 23 [facility] Signed: 07/27/2024 12:26 Receipt Acknowledged By: 07/30/2024 10:18 /megan/ ANDERSON MOE WINE MASTER NURSE 07/31/2024 ADDENDUM STATUS: COMPLETED Placed order for Metoprolol Succinate 25mg daily, order written by outside provider was for 12.5-25mg but did not see parameters for when patient would take half vs. whole tab. Form note appears BP has been elevated at home, which is why rfp writer went with 25mg. Placed consult for urology and neurology. Reviewed outside providers note in [facility]. /megan/ DILEEP RUTH APRN NURSE PRACTITIONER Signed: 07/31/2024 12:57 ANDERSON MOE [facility] Jul 27, 2024 12:25 PM ADMINISTRATIVE NOTE: LOCAL TITLE: CCC: SCHEDULING ADMINISTRATION STANDARD TITLE: ADMINISTRATIVE NOTE DATE OF NOTE: JUL 27, 2024@12:25 ENTRY DATE: JUL 27, 2024@12:25:17 AUTHOR: WALKER SHARMA EXP COSIGNER: URGENCY: STATUS: COMPLETED CCC: SCHEDULING ADMINISTRATION Has ADDENDA Primary Care Call Center Primary Care Provider Call. Please contact at the following number: [phone] Other: feli is requesting an consult for neurology and urology. also stated he thinks his meds are changing and would like a call back at the number above to hafsa. This note was created by a V23 [facility] Call Center YE/SARA. Please do not alert this rfp writer by adding as a signer for future communications. Alerts are not monitored by this user, please reach out to [facility] Leadership instead if indicated. /megan/ Walker BRAGG [facility] Signed: 07/27/2024 12:26 Receipt Acknowledged By: 07/30/2024 10:18 /megan/ ANDERSON MOE WINE MASTER NURSE 07/30/2024 ADDENDUM STATUS: COMPLETED Feli Carl's non-VA provider faxed request to change atenolol to metoprolol and request for VA neurology and urology referrals. See note 07/23/24 in [facility]. Feli confirms these services are not available at his clinic and he would like [facility] referrals. Medication need: Sent to [place] pharmacy and forwarded to co-managed care: 1. 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 Urology ref and CT urogram for hematuria Can you please review and place appropriate consults and make medication change. Thank you! /megan/ ANDERSON MOE, WINE MASTER NURSE Signed: 07/30/2024 10:18 Receipt Acknowledged By: 07/31/2024 12:55 /es/ DILEEP RUTH APRN NURSE PRACTITIONER 07/31/2024 ADDENDUM STATUS: COMPLETED Placed order for Metoprolol Succinate 25mg daily, order written by outside provider was for 12.5-25mg but did not see parameters for when patient would take half vs. whole tab. Form note appears BP has been elevated at home, which is why rfp writer went with 25mg. Placed consult for urology and neurology. Reviewed outside providers note [facility]. /megan/ DILEEP RUTH APRN NURSE PRACTITIONER Signed: 07/31/2024 12:57 WALKER SHARMA [facility]
--- NOTE | 2024-08-01 11:00 | CRLHL7_ITS ---
For Patients: As a result of the Century Cures Act, medical imaging exams and procedure reports are released immediately into your electronic medical record. You may view this report before your referring provider. If you have questions, please contact your health care provider. INDICATION: Hematuria. Frequency of micturition. TECHNIQUE: Volumetric helical scanning of the abdomen and pelvis was performed initially without contrast material. 100 cc of Isovue 370 contrast material were then injected IV in two 50 cc boluses 5 minutes apart. Ninety seconds following the second bolus, scanning of the abdomen and pelvis was repeated. Coronal and sagittal reconstructions were obtained. COMPARISON: None. FINDINGS: No urinary tract stone or obstruction is demonstrated. A right renal parenchymal cysts measuring up to 10 cm in diameter is demonstrated as well as a 9 cm left renal parenchymal cyst. The kidneys are otherwise unremarkable. The excretory images demonstrate no filling defect in either collecting system, either ureter or in the partially filled bladder. The prostate is mildly enlarged. The liver is normal in size, shape and attenuation. No bile duct dilation is evident. The spleen is within normal limits. The adrenal glands are unremarkable. The pancreas is within normal limits. No lymphadenopathy is evident. No free fluid is demonstrated. Bowel is unremarkable except for colonic diverticulosis. A right hip arthroplasty is noted. The lung bases are clear, and heart size is normal. Calcified coronary arterial plaque is demonstrated. IMPRESSION: 1. Negative CT urogram except for a 10 cm right renal parenchymal cyst at the 9 cm left renal parenchymal cyst. 2. Mild prostate enlargement. 3. Colonic diverticulosis 4. 5. Please note that all CT scans at this facility use dose modulation, iterative reconstruction, and/or weight-based dosing when appropriate to reduce radiation dose to as low as reasonably achievable. Dictated by Shaun Olguin MD @ 08/02/2024 7:01:10 AM (Electronically Signed)
[2024-08-01 11:20] LABS: Creatinine* 0.9 mg/dL (0.5-1.5); Estimated Glomerular Filt Rate 87 ml/min
== END 2024-08-01 10:51 | disposition home or self-care (01) ==
LOC: CT 10:51
PROVIDERS: PCP Family Medicine; Visit Provider Family Medicine
DX: R31.9 Hematuria, unspecified (principal); N28.1 Cyst of kidney, acquired; N40.0 Benign prostatic hyperplasia without lower urinary tract symptoms; K57.30 Diverticulosis of large intestine without perforation or abscess without bleeding; R35.0 Frequency of micturition
CPT/HCPCS: 36415; 74178; 82565; Q9967

== ENCOUNTER 2025-01-25 09:05 | Outpatient (CLI) | payer MEDICARE, SELFPAY | END 2025-01-25 09:06 | disposition home or self-care (01) | LOC: NFLDREF 01-28 03:58 | PROVIDERS: PCP Family Medicine; Referring Provider Family Medicine; Visit Provider Family Medicine | DX: E78.5 Hyperlipidemia, unspecified (principal); I10 Essential (primary) hypertension; N40.0 Benign prostatic hyperplasia without lower urinary tract symptoms; Z12.5 Encounter for screening for malignant neoplasm of prostate | CPT/HCPCS: 80053; 80061; 84153 ==

== ENCOUNTER 2025-08-15 10:20 | Outpatient (CLI) | payer MEDICARE, SELFPAY | END 2025-08-15 10:21 | disposition home or self-care (01) | LOC: NFLDREF 08-20 22:05 | PROVIDERS: PCP Family Medicine; Referring Provider Family Medicine; Visit Provider Family Medicine | DX: N32.81 Overactive bladder (principal) | CPT/HCPCS: 87086 ==